=== PATIENT | male | born 1955 | race Caucasian/White ===

== ENCOUNTER 2017-12-28 08:46 | Inpatient (IN) ==
[~2017-12-28 08:46] MED LIST: Famotidine 20 MG/2 ML VIAL IVP ONE; Pregabalin 75 MG CAPSULE PO ONE; Ringers Solution, Lactated 1,000 ML IVC SCH
[2017-12-28] MEDS ORDERED: Albuterol 2.5 MG/3 ML NEBULIZER IH ONE (09:06)
[2017-12-28] MEDS ORDERED: *HR* FentaNYL (PF) 100 MCG/2 ML VIAL ONE (09:30)
[2017-12-28] MEDS ORDERED: Ondansetron 4 MG/2 ML VIAL ONE (09:30)
[2017-12-28] MEDS ORDERED: *HR* Propofol 200 MG/20 ML VIAL IVP ONE ×2 (09:30→12:07)
[2017-12-28] MEDS ORDERED: Dexamethasone 4 MG/ML VIAL ONE (09:30)
[2017-12-28] MEDS ORDERED: *HR* Midazolam HCl 2 MG/2 ML VIAL ONE (09:30)
[2017-12-28] MEDS ORDERED: Lidocaine -MPF 2% 2 ML VIAL ONE (09:30)
[2017-12-28] MEDS ORDERED: ROPIVACAINE HCL/PF 0.5% 30 ML VIAL ONE (09:42)
[2017-12-28] MEDS ORDERED: Dexmedetomidine HCl 400 MCG/100 ML MLS IVC ONE (09:42)
[2017-12-28] MEDS ORDERED: Morphine Sulfate/PF 5mg/10mL Vial ONE (09:42)
--- NOTE | 2017-12-28 09:44 | Anesthesia Evaluation PreOp ---
Date of Encounter: 12/28/17 Time of Encounter: 09:40 - Past History Planned Operation: Left TKA Cardiac History: HTN, Hyperlipidemia Pulmonary History: Smoker, COPD OPERATOR SPECIALIST COMMUNICATIONS History: Denies Any Significant HX Other Medical History: GERD Anesthesia History: No Prior Anesthetic Complications Alcohol Use: occasionally Drug use: none Medications and Allergies Albuterol Sulfate [Albuterol Inhaler] 2 puff IH Q6H PRN 07/07/17 [History] Aspirin [Lo-Dose Aspirin EC] 81 mg PO DAILY 07/07/17 [History] Atenolol [Tenormin] 25 mg PO DAILY 07/07/17 [History] Atorvastatin [Lipitor] 40 mg PO HS 07/07/17 [History] Cholecalciferol (D-3) [Vitamin D] 5,000 unit PO MO 07/07/17 [History] Lisinopril [Zestril] 80 mg PO DAILY 07/07/17 [History] Omeprazole [PriLOSEC] 40 mg PO DAILY 07/07/17 [History] Aspirin Enteric Coated [Aspirin EC] 325 mg PO BID #20 tablet. 12/27/17 [Rx] OxyCODONE Immed Rel [Roxicodone 5 MG] 5 mg PO Q6HR PRN 7 Days #28 tablet [Rx] 3 Allergy/AdvReac Type Severity Reaction Status Date / Time No Known Allergies Allergy Verified 12/23/17 11:38 - Meds/Allergy Pre-op Review Medications Reviewed: Yes Allergies Reviewed: Yes Beta Blockers on Current Med List: Yes (Metoprolol today 0800) Anesthesia Results - Labs Laboratory Tests 12/23/17 12/23/17 12:30 12:30 Hgb 15.8 Hct 46.0 Plt Count 202 Sodium 136 Potassium 5.1 BUN 30 H Creatinine 1.29 - Imaging EKG: report reviewed (SB) Anesthesia Exam O2 Sat Height 1.83 m Height 1.83 m Height 1.83 m Weight 116.12 kg Weight 116.12 kg Weight 116.12 kg O2 Sat by Pulse Oximetry 94 Vital Signs Temp Pulse Resp BP Pulse Ox 98.1 F 68 18 119/78 94 12/28/17 09:33 12/28/17 09:33 12/28/17 09:33 12/28/17 09:33 12/28/17 09:33 Height: 6'0 Weight: 256 lbs NPO (# of Hours): MN Pain Scale: 0 - HEENT Pupil (Motor): Pupils equal, EOMI Mallampati: III Denture Type: Upper: Complete Oral Opening: Less than or equal to 3 - OPERATOR SPECIALIST COMMUNICATIONS LOC: Oriented OPERATOR SPECIALIST COMMUNICATIONS Motor: Normal RUE, Normal LUE, Normal RLE, Normal LLE, Normal Face OPERATOR SPECIALIST COMMUNICATIONS Sensory: Normal: RUE, LUE, RLE, LLE, Face - Cardiac Rhythm: Regular Murmur: None JVD: No Carotid Bruit: No - Pulmonary Breath Sounds: bilateral Clear Respiratory Effort: Symmetrical Anesthesia Assess/Plan ASA Score: 3 (HTN COPD Gerd) Modified [place] Scale for Level of Consciousness: Cooperative, oriented, and tranquil Anesthetic Plan: Regional, MAC Monitoring Plan: Standard Monitors Recovery Plan: PACU (Discussed SAB with Adductor Canal Block, possible GA, agrees to proceed)
[2017-12-28] MEDS ORDERED: *HR* Dextrose 50 % in Water (Syg) 50 ML SYRINGE IVC ONE (09:49)
--- NOTE | 2017-12-28 09:55 | History & Physical Report ---
Date of Encounter: 12/28/17 Time of Encounter: 09:55 24 Hour HP Update - Instructions Instructions: If the History and Physical is less than 30 days old and was completed prior to A.M. admission and or procedure and has NOT been updated on calendar day of procedure please complete this update prior to performing procedure. - Update Patient reports changes in Medical Condition: No Changes in examination, assessment, or condition: No Changes in Medication: No Preop tests/diagnostics Reviewed: Yes Surgery Remains Indicated: Yes Consent for Planned Operative Procedure(s) Verified: Yes - Pre-Operative Checklist Preoperative Checklist Indicated: No Prophylactic Antibiotic Ordered: Yes Is VTE Prophylaxis Indicated?: Yes
[2017-12-28] MEDS ORDERED: Ethanol\\Acetic Acid\\Na Ace\\Ben 1,000 ML IRRIG.SOLN IR ONE (10:42)
--- NOTE | 2017-12-28 10:55 | Anesthesia Procedures ---
Date of Encounter: 12/28/17 Time of Encounter: 09:40 Procedures: Anesthesia - Epidural/Spinal Patient ID/Chart reviewed: Yes Patient examined: Yes Consent Obtained: Yes Supplemental Oxygen: Nasal Cannula (2) Sedation: Versed (mg): 2 Sedation: Fentanyl (mcg): 50 Site Prep: Aseptic Technique Patient position: upright Local Anesthetic: Lidocaine 1% Interspace Used: L4-L5 Loss of Resistance (MARGARETH): No Blood: No CSF: Yes Paresthesia: No Spinal Needle Gauge: 24 Spinal Dose: 10 mg isobaric marcaine, duramorph 300 micrograms Vitals + FHT's: Vital Signs/O2 Sat/Glucose, Most Current Temp Pulse Resp BP Pulse Ox 12/28/17 10:53 58 15 101/68 94 12/28/17 10:50 65 15 99/65 95 12/28/17 10:47 59 16 94/57 94 12/28/17 10:44 60 16 112/51 93 12/28/17 10:39 64 15 104/54 94 12/28/17 10:36 59 16 112/62 92 12/28/17 10:33 61 15 122/91 90 12/28/17 10:19 57 15 125/87 91 12/28/17 09:33 98.1 F 68 18 119/78 94 - Nerve Block Procedure Date: 12/28/17 Time: 10:30 Pre-op Diagnosis: Left Knee Arthropathy Surgical Procedure: TKA Checklist: Correct Patient Identifier Correct side: Left Monitor Applied: EKG, BP, Pulse Oximetry Supplemental Oxygen via Nasal Cannula (L/min): 2 Sedation: Versed (mg): 2 Sedation: Fentanyl (mcg): 50 Indication: Post Op Analgesia Pre-op Neuro Deficits: No Block Type: Other (Adductor Canal Block) Catheter placed: No Depth at skin (cm): 4 Sterile Technique: Yes Ultrasound used: Yes Anatomy identified: Yes Visual spread of Local: Yes Neuro Stimulation: No Nerve Stimulator Range: >0.4 - 0.6 mA Blood on Needle Aspiration: No Smooth Injection of Local: Yes Pain with Injection of Local: No Prep: Chlorhexadine Needle: 21 x 100 mm Stimuplex Local: Ropivacaine (0.5%), Other (Precedex 20micrograms) Volume (cc): 30 Number of Attempts: 1 Complications: None/effective block
[2017-12-28] MEDS ORDERED: *HR* OxyCODONE Immed Rel 5 MG TABLET PO PRN (12:27)
[2017-12-28] MEDS ORDERED: *HR* Promethazine 25 MG/ML VIAL IVP PRN (12:27)
[2017-12-28] MEDS ORDERED: Ondansetron 4 MG/2 ML VIAL IVP ONE (12:27)
[2017-12-28] MEDS ORDERED: Ringers Solution, Lactated 1,000 ML IVC SCH (12:30)
[2017-12-28] MEDS ORDERED: *HR* PHENYLEPHRINE 1,000 MCG/10 ML SYRINGE IVP ONE (12:37)
--- NOTE | 2017-12-28 12:39 | Orthopedic Operative Note ---
Date of procedure: 12/28/17 Pre-op diagnosis: Left knee arthritis Post-op diagnosis: same Procedure: Procedure: Left robotic-assisted Total knee replacement Estimated blood loss: 200 cc Hardware: Metal and polyethylene replacement. [place] Femur: 7 Tibia: 7 TS insert: 9 Patella: 39 Exam Under anesthesia: 2 degree flexion contracture 12 degree varus as calculated by the robot full flexion and no instability Procedural Notes: Grade 4 arthritic changes all 3 compartments. Operative procedure: The patient was brought to the operating room and placed on the operating room table. After general anesthesia was administered the operative knee was examined. Findings were noted in the exam under anesthesia. The operative extremity was prepped and draped in sterile surgical fashion. The patient received IV antibiotics prior to skin incision. A standard midline incision was made centered over the patella. The incision was made through the skin and subcutaneous tissue. A medial parapatellar tendon approach was performed. Care was taken to preserve tissue along the medial aspect of the patella. Cultures were obtained although no fluid was consistent with infection patient has a history of distal tibia fracture with complications. And to protect the patella tendon. The deep MCL was released off the medial tibia. The infra patella fat pad was excised. The patella was everted and cut was made at the level of the insertion of the quadriceps and patella tendon. The patella was sized to 39 the guide was seated and the lug holes are drilled. Knee was brought into flexion. Patient noted to have Steinmann pins were placed in the tibia and the femur for the tibial and femoral arrays respectively. Checkpoints were also placed in the tibia and the femur for calculation purposes. The knee including the femur and the tibial registered. Osteophytes, ACL and PCL were excised at this point. Extension and flexion were assessed with a valgus stress components were adjusted on the computer to balance the knee. Femoral cuts were made first with robotic assistance, these included the anterior cut posterior cuts chamfer cuts. Tibial cut was then performed with robotic assistance as well. Bone fragments were removed, as well as the medial and lateral meniscus. The size 7 femoral guide was seated box cut was made lug holes are drilled. The size 7 tibial tray was seated and prepared with the fin cutter. Trial reduction with the 9 TS Lesvia revealed extension of 0 degree and 7 degree varus full flexion. No varus valgus instability. Trial reduction revealed excellent patella tracking. All trial components were removed all bony surfaces were irrigated. The Tibia was seated followed by the femur, The Lesvia size 9 was seated and secured patella. Patient had similar findings for motion and stability. The knee was closed by the PA. The knee was then irrigated out with 2 L of pulse irrigation. The extensor mechanism was closed with #2 FiberWire suture and #2 PDS suture. The subcutaneous tissue was then irrigated and closed deep with #1 PDS suture superficially with 0 PDS suture and skin was closed with zip tie The patient was then placed in a sterile dressing and a postoperative brace extubated and transferred to recovery room in stable condition. Anesthesia: spinal Surgeon: Cody Ash Was there an intellectual property legal assistant present: No Estimated blood loss (cc): 200 Condition: stable Disposition: PACU
[2017-12-28] MEDS ORDERED: Albuterol 2.5 MG/3 ML NEBULIZER ONE (13:34)
[2017-12-28 13:57] LABS: Hematocrit 41.6 % (37.5-50.1)
[2017-12-28 14:01] LABS: Hemoglobin 14.1 g/dL (12.9-16.9)
[2017-12-28] MEDS ORDERED: *HR* OxyCODONE/APAP 5/325 TABLET PO PRN (14:11)
--- NOTE | 2017-12-28 14:13 | Anesthesia Evaluation Post Op ---
Date of Encounter: 12/28/17 Time of Encounter: 14:10 - Vital Signs Vital Signs: Vital Signs/O2 Sat/Glucose, Most Current Temp Pulse Resp BP Pulse Ox 12/28/17 13:55 50 16 114/65 93 12/28/17 13:45 97.3 F L 54 16 98/75 92 12/28/17 13:35 52 16 112/70 93 12/28/17 13:25 54 16 91/76 93 12/28/17 13:15 97.3 F L 63 16 116/67 95 12/28/17 11:26 56 15 96/61 93 12/28/17 11:21 58 15 93/59 94 12/28/17 11:16 61 15 90/64 93 12/28/17 11:12 58 15 84/52 93 12/28/17 11:06 58 15 84/56 93 12/28/17 11:02 60 15 92/63 92 12/28/17 11:00 60 15 94/69 96 12/28/17 10:56 59 15 95/55 92 12/28/17 10:53 58 15 101/68 94 12/28/17 10:50 65 15 99/65 95 12/28/17 10:47 59 16 94/57 94 12/28/17 10:44 60 16 112/51 93 12/28/17 10:39 64 15 104/54 94 12/28/17 10:36 59 16 112/62 92 12/28/17 10:33 61 15 122/91 90 12/28/17 10:19 57 15 125/87 91 - Lungs Lungs: Clear Ascult./Percussion - Airway Airway: Non-obstructed - Cardiovascular Regular Rate - Mental Status Mental Status: Alert & Oriented, Answers Appropriately - Pain Pain Scale: 0 - Nausea Vomiting Nausea Vomiting: Not Present - Hydration Hydration: Ice chips - Discharge PostOp Status: Transfer Patient to floor
[2017-12-28] MEDS ORDERED: Ondansetron 4 MG/2 ML VIAL IVP PRN (14:54)
[2017-12-28] MEDS ORDERED: traMADol 50 MG TABLET PO PRN (14:54)
[2017-12-28] MEDS ORDERED: DIPHENHYDRAMINE PO PRN (14:54)
[2017-12-28] MEDS ORDERED: ACETAMINOPHEN PO PRN (14:54)
[2017-12-28] MEDS ORDERED: Temazepam 15 MG CAPSULE PO PRN (14:54)
[2017-12-28] MEDS ORDERED: Naloxone 0.4 MG/ML INJ IVP PRN ×2 (14:54→18:24)
[2017-12-28] MEDS ORDERED: (Melatonin/Pyridoxine Hcl (B6) [Melatonin 3 Mg Tablet) PO PRN (14:54)
[2017-12-28] MEDS ORDERED: Sennosides 8.6 MG TABLET PO PRN (14:54)
[2017-12-28] MEDS ORDERED: MOM Conc 10 ML UD.LIQ PO PRN (14:54)
--- NOTE | 2017-12-28 15:48 | Physician Discharge Referral ---
<Scarlett Regan L - Last Filed: 12/28/17 15:46> Home Health/Hosp Referral Info Transfer to: Home Health Attending Provider: Provider in Charge Post Discharge: PCP - Diagnosis (1) Status post total knee replacement, left Priority: Primary Status: Acute (2) Arthritis of knee, left Priority: Primary Status: Acute (3) COPD (chronic obstructive pulmonary disease) Priority: Secondary Status: Chronic (4) HTN (hypertension) Priority: Secondary Status: Chronic (5) Tobacco use Priority: Secondary Status: Chronic (6) History of abdominal aortic aneurysm (AAA) Priority: Secondary Status: Chronic - Respiratory Orders None Smoking Cessation: Smoking cessation has been advised. For more information, call the [place] Tobacco Quit Line at 5-620-MEFC-NOW. - Diet/Nutrition Diet/Nutrition Orders: Regular - Activity Activity Orders: Up ad carlos, Ambulate - Services Needed Following services are medically necessary services: Nursing, Home Health Aide, Physical Therapy, Occupational Therapy Other Treatments: Rehab orders for total knee: Total Knee replacement Precautions x 6 weeks Apply cold therapy wrap 3-6x/day for 20 minutes at a time. Encourage ambulation throughout the day and incentive spirometer 10x/hour. Elevate affected extremity above heart as tolerated. Brace: Wear knee immobilizer at night x 2 weeks. Treatments: Opsite and Zipline dressing, leave intact until first post-operative visit. If dressing becomes >50% saturated, contact office, remove dressing and place appropriate dressing in its place. Do not allow for dressing to get wet. . - Transfer Medications Prescriptions: predniSONE [PredniSONE] See Taper PO DAILY 12 Days #30 tablet Home Medications: Aspirin Enteric Coated [Aspirin EC] 325 mg PO BID #20 tablet. 12/27/17 [Rx] OxyCODONE Immed Rel [Roxicodone 5 MG] 5 mg PO Q6HR PRN 7 Days #28 tablet [Rx] Acetaminophen/Diphenhydramine [Percogesic 325-12.5 mg Tablet] 1 tab PO HS PRN [History] Albuterol Sulfate [Ventolin Hfa] 2 puff IH Q4-6H PRN 12/28/17 [History] Amlodipine Besylate [Amlodipine Besylate] 10 mg PO DAILY 12/28/17 [History] Aspirin [Lo-Dose Aspirin EC] 81 mg PO DAILY 12/28/17 [History] Atenolol [Tenormin] 25 mg PO DAILY 12/28/17 [History] Atorvastatin [Lipitor] 40 mg PO HS 12/28/17 [History] Cholecalciferol (D-3) [Vitamin D] 5,000 unit PO MO 12/28/17 [History] Fluticasone/Salmeterol [Advair 250-50 Diskus] 1 puff IH BID 12/28/17 [History] Ipratropium/Albuterol Neb [Duoneb] 3 ml IH Q6H PRN 12/28/17 [History] Lisinopril [Zestril] 40 mg PO DAILY 12/28/17 [History] Melatonin/Pyridoxine HCl (B6) [Melatonin 3 mg Tablet] 1 tab PO HS PRN 12/28/17 [ History] Omeprazole [PriLOSEC] 40 mg PO Q48H 12/28/17 [History] predniSONE [PredniSONE] See Taper PO DAILY 12 Days #30 tablet 01/02/18 [Rx] Allergies/Adverse Reactions: 3 Allergy/AdvReac Type Severity Reaction Status Date / Time No Known Allergies Allergy Verified 12/28/17 10:11 Certification: Further, I certify that my clinical findings support that this patient is homebound (i.e. absences from home require considerable and taxing effort and are for medical reasons or latter day services or infrequently or short duration when for other reasons) because: Homebound Reason: Post-surgery restriction and or conditions limit ability to leave home Attestation: My signature below is to certify that this patient is under my care and that I, or nurse practitioner, or a physician's kindergarten teacher assistant working with me, has a face-to -face encounter with this patient. <Vesna Chao - Last Filed: 01/02/18 14:35> Home Health/Hosp Referral Info Transfer to: Home Health Provider in Charge Post Discharge: PCP - Diagnosis (1) Status post total knee replacement, left Priority: Primary Status: Acute (2) Arthritis of knee, left Priority: Primary Status: Chronic (3) COPD (chronic obstructive pulmonary disease) Priority: Secondary Status: Chronic (4) HTN (hypertension) Priority: Secondary Status: Chronic (5) Tobacco use Priority: Secondary Status: Chronic (6) History of abdominal aortic aneurysm (AAA) Priority: Secondary Status: Chronic (7) SHANA (acute kidney injury) Priority: Secondary Status: Resolved - Respiratory Orders Smoking Cessation: Smoking cessation has been advised. For more information, call the [place] Tobacco Quit Line at 5-328-SXSV-NOW. - Dressing/Wound Care Site: Left knee - Diet/Nutrition Diet/Nutrition Orders: Regular - Activity Activity Orders: Up ad carlos, Ambulate, Chair, Walker - Services Needed Following services are medically necessary services: Nursing, Home Health Aide, Physical Therapy, Occupational Therapy Certification: Further, I certify that my clinical findings support that this patient is homebound (i.e. absences from home require considerable and taxing effort and are for medical reasons or latter day services or infrequently or short duration when for other reasons) because: Homebound Reason: Post-surgery restriction and or conditions limit ability to leave home Attestation: My signature below is to certify that this patient is under my care and that I, or nurse practitioner, or a physician kindergarten teacher assistant working with me, has a face-to- face encounter with this patient.
[2017-12-28] MEDS: Ipratropium/Albuterol Neb 3 ML IH PRN (17:00)
[2017-12-28 17:52] LABS: BUN/Creatinine Ratio 18 (6-26); Blood Urea Nitrogen 30 mg/dL (8-23); Calcium 9.2 mg/dL (8.6-10.3); Carbon Dioxide 26 mEq/L (23-29); Chloride 106 mEq/L (98-107); Glucose 164 mg/dL (70-105); Osmolality,Calculated 294 (280-300); Potassium 6.4 mEq/L (3.5-5.1); Sodium 137 mEq/L (136-145); eGFR For African Americans 52 (> 60); eGFR For Non-African Americans 43 (> 60)
[2017-12-28] MEDS ORDERED: *HR* Enoxaparin 30 MG/0.3 ML SYRINGE SQ SCH (18:00)
[2017-12-28 18:20] LABS: Troponin I < 0.03 ng/mL (< 0.04)
[2017-12-28 18:22] LABS: ABG Base Excess -1 mEq/L (-2 to 3); ABG HCO3 29 mEq/L (21-27); ABG Oxygen Saturation 83 % (95-98); ABG PCO2 73 mmHg (35-45); ABG PH 7.21 pH Units (7.32-7.45); ABG PO2 60 mmHg (85-104); ABG TCO2 31 mEq/L (20-26)
[2017-12-28] MEDS ORDERED: Insulin LISPRO 300 UNITS/3 ML VIAL SQ ONE (18:51)
[2017-12-28] MEDS ORDERED: *HR* Dextrose 50 % in Water (Syg) 50 ML SYRINGE ONE (18:53)
[2017-12-28] MEDS ORDERED: *HR* Dextrose 50 % in Water (Syg) 50 ML SYRINGE IVP ONE (18:54)
[2017-12-28] MEDS ORDERED: Insulin Human Regular 10 UNIT in 0.9 % Sodium Chloride 10 ML IV ONE (18:54)
[2017-12-28] MEDS ORDERED: SODIUM CHLORIDE 0.9% IVPB ONE (19:17)
[2017-12-28] MEDS ORDERED: CALCIUM GLUCONATE IVPB ONE (19:17)
[2017-12-28 19:38] LABS: VBG HCO3 27 mEq/L (21-27); VBG PCO2 61 mmHg (41-51); VBG PH 7.25 pH Units (7.32-7.42); VBG PO2 191 mmHg (25-50)
[2017-12-28 19:55] LABS: Calcium 9.4 mg/dL (8.6-10.3); Potassium 5.3 mEq/L (3.5-5.1)
[2017-12-28] MEDS: Nicotine 21 MG PATCH.TD24 TD SCH (20:26)
[2017-12-28] MEDS: CeFAZolin Syr 3,000MG/30 ML 3,000 MG/30 ML SYRINGE IVPB SCH (20:26)
[2017-12-28] MEDS: *HR* Enoxaparin 30 MG/0.3 ML SYRINGE SQ SCH (20:26)
--- NOTE | 2017-12-28 21:01 | Internal Medicine Consult Note ---
<Alena Flowers - Last Filed: 12/28/17 21:59> Date of Encounter: 12/28/17 Time of Encounter: 21:00 - Assessment and plan (1) Status post total knee replacement, left Current Visit: Yes Status: Acute Assessment and plan: To be managed per Dr. Ash (2) COPD (chronic obstructive pulmonary disease) Current Visit: Yes Status: Chronic Assessment and plan: Bronchodilators Oxygen prn Bipap Qualifiers: COPD type: unspecified COPD Qualified Code(s): J44.9 - Chronic obstructive pulmonary disease, unspecified (3) HTN (hypertension) Current Visit: Yes Status: Chronic Assessment and plan: Patient bp is well controlled, borderline hypotensive Continue home medications Monitor vital signs Qualifiers: Hypertension type: essential hypertension Qualified Code(s): I10 - Essential (primary) hypertension (4) Tobacco use Current Visit: Yes Status: Chronic Assessment and plan: Smoking cessation education (5) Bradycardia Current Visit: Yes Status: Acute Assessment and plan: Patient likely carrington as a result of recieving anesthesia/propofol. The patient does take atenolol, norvasc and lisinpril. Will add parameters to the atenolol. (6) Hyperkalemia Current Visit: Yes Status: Acute Assessment and plan: Treated with insulin, d50 and calcium gluconate during rapid response. Currently 5.3 - Time Spent With Patient Total time spent is greater than 50% in coordination of care (as documented) at patient's floor/unit and/or counseling patient: Internal Medicine - CN: HPI - Data of Consult Consult date: 12/28/17 Requesting Physician: Cody Ash MD - Consult Narrative Reason for consult: Hypoxia and Bradycardia History of present illness: Mr. Downey is a 62 year old male with history of COPD, HTN, HLD ,OA, depression and tobacco abuse. Received consult request from regarding patient bradycardia and hypoxemia. Please see event note for rapid response information. Patient currently alert and oriented 3, BiPAP on at this time. O2 sat is 94%. The patient will be transferred to . The patient is currently on cardiac monitoring. Past Med Surg Social Fam HX - Past Medical History Medical history: COPD, GERD, hyperlipidemia, hypertension Additional medical history: osteoarthritis,depression,AAA 3.2 cm Psychiatric history: no psych history - Past Surgical History Surgical History: appendectomy, herniorrhaphy, orthopedic, other Additional surgical history: left lower leg multiple surgeries,knee surgery, right hand surgery - Social History Smoking Status: Current every day smoker Smokeless Tobacco Status: No Alcohol use: occasionally Drug use: none - Family History Brother Living Status: Hx Family Cardiac Disorders: Yes Mother Living Status: Hx Family Cancer: Yes - Constitutional Constitutional: lethargy - EENT Ears: no ear discharge Nose, mouth and throat: no facial pain, no mouth lesions, no throat swelling - Cardiovascular Cardiovascular ROS IM: other (Bradycardia), no chest pain - Respiratory Respiratory: dyspnea - Gastrointestinal Gastrointestinal: no abdominal pain, no diarrhea, no nausea - Musculoskeletal Musculoskeletal ROS IM: limited range of motion (left knee) - Integumentary Integumentary IM: other (left knee surgery) - Neurological Neurological ROS: weakness - Endocrine Endocrine IM: no flushing - Hematologic/Lymphatic Hematologic/Lymphatic: no easy bleeding Internal Medicine - CN: Meds Aspirin Enteric Coated [Aspirin EC] 325 mg PO BID #20 tablet. 12/27/17 [Rx] OxyCODONE Immed Rel [Roxicodone 5 MG] 5 mg PO Q6HR PRN 7 Days #28 tablet [Rx] Acetaminophen/Diphenhydramine [Percogesic 325-12.5 mg Tablet] 1 tab PO HS PRN [History] Albuterol Sulfate [Ventolin Hfa] 2 puff IH Q4-6H PRN 12/28/17 [History] Amlodipine Besylate [Amlodipine Besylate] 10 mg PO DAILY 12/28/17 [History] Aspirin [Lo-Dose Aspirin EC] 81 mg PO DAILY 12/28/17 [History] Atenolol [Tenormin] 25 mg PO DAILY 12/28/17 [History] Atorvastatin [Lipitor] 40 mg PO HS 12/28/17 [History] Cholecalciferol (D-3) [Vitamin D] 5,000 unit PO MO 12/28/17 [History] Fluticasone/Salmeterol [Advair 250-50 Diskus] 1 puff IH BID 12/28/17 [History] Ipratropium/Albuterol Neb [Duoneb] 3 ml IH Q6H PRN 12/28/17 [History] Lisinopril [Zestril] 40 mg PO DAILY 12/28/17 [History] Melatonin/Pyridoxine HCl (B6) [Melatonin 3 mg Tablet] 1 tab PO HS PRN 12/28/17 [ History] Omeprazole [PriLOSEC] 40 mg PO Q48H 12/28/17 [History] 3 Allergy/AdvReac Type Severity Reaction Status Date / Time No Known Allergies Allergy Verified 12/28/17 10:11 Internal Medicine - CN: Exam - Constitutional Vitals: Temp Pulse Resp BP Pulse Ox 97.6 F 52 15 91/59 100 12/28/17 16:00 12/28/17 20:23 12/28/17 20:23 12/28/17 20:23 12/28/17 20:23 General appearance IM: Present: mild distress, A&O X 3 - Head Head exam: Present: atraumatic, normal inspection - ENT ENT exam: Present: normal exam - Respiratory Respiratory exam: Present: decreased breath sounds, rhonchi (faint) - Cardiovascular Cardiovascular exam IM: Present: bradycardia - GI/Abdominal GI/Abdominal exam IM: Present: normal bowel sounds. Absent: tenderness - Extremities Exam Extremities exam IM: Present: pedal edema (mild), radial pulses palpable and symmetrical. Absent: full ROM (left knee surgery) - Back Exam Back exam: Present: normal inspection - Neurological Exam Neurological exam: Present: CN II-XII intact, oriented X3, strengths equal and symetr throughout - Expanded Neurological Exam Patient oriented to: Present: person, place, time - Psychiatric Psychiatric exam: Present: normal affect (Appropriate for situation) Internal Medicine - CN: Reslt - Labs CBC & Chem 7: 12/28/17 13:44 12/28/17 19:24 Labs: Short CBC 12/28/17 Range/Units 13:44 Hgb 14.1 D (12.9-16.9) g/dL Hct 41.6 (37.5-50.1) % BMP 12/28/17 12/28/17 17:22 19:24 Sodium 137 137 Potassium 6.4 H 5.3 H Chloride 106 106 Carbon Dioxide 26 24 BUN 30 H 32 H Creatinine 1.63 H 1.91 H Glucose 164 H 258 H Calcium 9.2 9.4 Cardiac Enzymes 12/28/17 Range/Units 17:22 Troponin I < 0.03 (< 0.04) ng/mL - ABG Interpretation ABG results: ABG ABG pH 7.21 pH Units (7.32-7.45) L 12/28/17 18:14 ABG pCO2 73 mmHg (35-45) H* 12/28/17 18:14 ABG pO2 60 mmHg (85-104) L 12/28/17 18:14 ABG O2 Saturation 83 % (95-98) L 12/28/17 18:14 - Impressions Impressions Knee X-Ray 12/28/17 00:01 IMPRESSION: Status post left knee arthroplasty without acute postoperative complication. D/ / 12/28/2017 13:41:06 Mick Matos MD / [facility] Interpreting Provider: Mick Matos MD Chest X-Ray 12/28/17 17:56 IMPRESSION: 1. Perihilar vascular congestion with basilar atelectasis. D/ / 12/28/2017 18:41:24 [facility] Inter[facility] Provider: Apoorva Castano MD Consult Discharge Plan - Plan Referrals: Vesna Chao, PAC [Physician Supervisor Metalizing] - 01/13/18 1:15 pm Cody Ash MD [Partnered Physician] - 01/25/18 4:50 pm Scarlett Regan, PAC [Physician Supervisor Metalizing] - 01/05/18 10:30 am Faviola Bañuelos, GRANULATOR [Primary Care Provider] - <Lory Moser - Last Filed: 12/29/17 07:30> Date of Encounter: 12/28/17 - Time Spent With Patient Total time spent is greater than 50% in coordination of care (as documented) at patient's floor/unit and/or counseling patient: Internal Medicine - CN: HPI - Data of Consult Requesting Physician: Cody Ash MD - Consult Narrative History of present illness: Mr. Downey is a 62 year old male Internal Medicine - CN: Exam - Constitutional Vitals: Temp Pulse Resp BP Pulse Ox 96.8 F L 76 12 118/76 100 07/12/18 03:43 12/29/17 03:43 12/29/17 04:04 12/29/17 03:43 12/29/17 04:04 Internal Medicine - CN: Reslt - Labs CBC & Chem 7: 12/29/17 03:09 12/29/17 03:09 Labs: Short CBC 12/28/17 12/29/17 Range/Units 13:44 03:09 Hgb 14.1 D 14.0 (12.9-16.9) g/dL Hct 41.6 43.1 (37.5-50.1) % BMP 12/28/17 12/28/17 12/29/17 17:22 19:24 03:09 Sodium 137 137 138 Potassium 6.4 H 5.3 H 6.4 H Chloride 106 106 107 Carbon Dioxide 26 24 26 BUN 30 H 32 H 39 H Creatinine 1.63 H 1.91 H 2.60 H Glucose 164 H 258 H 146 H Calcium 9.2 9.4 9.3 Cardiac Enzymes 12/28/17 Range/Units 17:22 Troponin I < 0.03 (< 0.04) ng/mL - ABG Interpretation ABG results: ABG ABG pH 7.21 pH Units (7.32-7.45) L 12/28/17 18:14 ABG pCO2 73 mmHg (35-45) H* 12/28/17 18:14 ABG pO2 60 mmHg (85-104) L 12/28/17 18:14 ABG O2 Saturation 83 % (95-98) L 12/28/17 18:14 - Impressions Impressions Knee X-Ray 12/28/17 00:01 IMPRESSION: Status post left knee arthroplasty without acute postoperative complication. D/ / 12/28/2017 13:41:06 [facility] Mat[facility] MD / [facility] Interpreting Provider: Mick Matos MD Chest X-Ray 12/28/17 17:56 IMPRESSION: 1. Perihilar vascular congestion with basilar atelectasis. D/ / 12/28/2017 18:41:24 Apoorva Castano MD / [facility] Interpreting Provider: Apoorva Castano MD - Attending Attestation I personally and independently interviewed and examined the patient with MACHINIST, and I reviewed the patient's medical record with her. I am in agreement with the assessment and proposed treatment plan. I discussed my findings and recommendation with the patient and answer all questions. The patient's medical records were edited to accurately reflect this encounter.
--- NOTE | 2017-12-28 21:15 | Event Note ---
Date of Encounter: 12/28/17 Time of Encounter: 18:[address] Moser talking with nursing regarding patient and being a new consult to hospitalist. A rapid response was called on the patient, on arrival to the patient room, care was being provided per Dr. Moser. The patient was apparently having periods of lethargy and hypoxia since returning to his room from surgery. The patient has a COPD history. The patient was on bipap when I entered the room. The patient k was 6.4 and was treated during the rapid. The patient was transferred from room [facility] to [facility], during this time. He was awake and alert by the end of he rapid. I completed my assessment at that time. He denied needs.
[2017-12-29] MEDS: Ringers Solution, Lactated 1,000 ML IVC SCH ×2 (01:00→08:50)
[2017-12-29] MEDS: CeFAZolin Syr 3,000MG/30 ML 3,000 MG/30 ML SYRINGE IVPB SCH (03:37)
[2017-12-29] MEDS: *HR* Enoxaparin 30 MG/0.3 ML SYRINGE SQ SCH (03:38)
[2017-12-29 03:47] LABS: Hematocrit 43.1 % (37.5-50.1)
[2017-12-29] MEDS: Ipratropium/Albuterol Neb 3 ML IH PRN (04:03)
[2017-12-29 04:06] LABS: Calcium 9.3 mg/dL (8.6-10.3); Potassium 6.4 mEq/L (3.5-5.1)
--- NOTE | 2017-12-29 08:08 | Orthopedics Progress Note ---
Date of Encounter: 12/29/17 Time of Encounter: 08:07 Subjective Interval history: Patient was seen this morning transferred to cardiac care unit overnight for respiratory distress and hyperkalemia patient awake and alert doing well no complaints. Afebrile vital signs stable. Operative extremity: Neurovascularly intact Dressing clean dry and intact Calves nontender Assessment and plan: Continue with postoperative care as per hospitalist recommended a nephrology consult Objective Vital signs: Vital Signs Temp Pulse Resp BP Pulse Ox 12/29/17 07:29 97.6 F 60 17 102/60 93 12/29/17 04:04 12 100 12/29/17 03:43 96.8 F L 76 18 118/76 96 12/28/17 23:35 82 15 96/63 100 12/28/17 20:23 52 15 91/59 100 12/28/17 18:09 59 16 103/59 91 12/28/17 17:00 12 90 12/28/17 16:30 51 16 111/65 95 12/28/17 16:00 97.6 F 59 12 103/60 91 12/28/17 15:30 46 14 106/64 12/28/17 15:00 50 16 103/64 94 12/28/17 14:30 53 20 94/59 92 12/28/17 14:15 97.2 F L 51 16 106/71 94 12/28/17 14:05 52 16 106/64 94 12/28/17 13:55 50 16 114/65 93 12/28/17 13:45 97.3 F L 54 16 98/75 92 12/28/17 13:35 52 16 112/70 93 12/28/17 13:25 54 16 91/76 93 12/28/17 13:15 97.3 F L 63 16 116/67 95 12/28/17 11:26 56 15 96/61 93 12/28/17 11:21 58 15 93/59 94 12/28/17 11:16 61 15 90/64 93 12/28/17 11:12 58 15 84/52 93 12/28/17 11:06 58 15 84/56 93 12/28/17 11:02 60 15 92/63 92 12/28/17 11:00 60 15 94/69 96 12/28/17 10:56 59 15 95/55 92 12/28/17 10:53 58 15 101/68 94 12/28/17 10:50 65 15 99/65 95 12/28/17 10:47 59 16 94/57 94 12/28/17 10:44 60 16 112/51 93 12/28/17 10:39 64 15 104/54 94 12/28/17 10:36 59 16 112/62 92 12/28/17 10:33 61 15 122/91 90 12/28/17 10:19 57 15 125/87 91 12/28/17 09:33 98.1 F 68 18 119/78 94 Intake and Output 12/28/17 12/29/17 12/29/17 23:59 07:59 15:59 Output Total 900 / 900 Balance -900 / -900 Output: Emesis 600 / 600 Straight Cath 300 / 300 Other: Weight 118.2 kg 118 kg Blood Glucose* 157 Patient Weight 12/29/17 23:59 Weight 118 kg - Labs CBC & BMP: 12/29/17 03:09 12/29/17 03:09 Labs: Abnormal lab results ABG pH 7.21 pH Units (7.32-7.45) L 12/28/17 18:14 ABG pCO2 73 mmHg (35-45) H* 12/28/17 18:14 ABG pO2 60 mmHg (85-104) L 12/28/17 18:14 ABG HCO3 29 mEq/L (21-27) H 12/28/17 18:14 ABG Total CO2 31 mEq/L (20-26) H 12/28/17 18:14 ABG O2 Saturation 83 % (95-98) L 12/28/17 18:14 VBG pH 7.25 pH Units (7.32-7.42) L 12/28/17 19:35 VBG pCO2 61 mmHg (41-51) H 12/28/17 19:35 VBG pO2 191 mmHg (25-50) H 12/28/17 19:35 Potassium 6.4 mEq/L (3.5-5.1) H 12/29/17 03:09 BUN 39 mg/dL (8-23) H 12/29/17 03:09 Creatinine 2.60 mg/dL (0.70-1.30) H 12/29/17 03:09 Est GFR ( Amer) 30 (> 60) L 12/29/17 03:09 Est GFR (Non-Af Amer) 25 (> 60) L 12/29/17 03:09 Glucose 146 mg/dL (70-105) H 12/29/17 03:09 POC Glucose 157 mg/dL (70-99) H 12/28/17 20:29 - VTE Documentation of Mechanical Device: Venous foot pump, device Consult Discharge Plan - Plan Referrals: Vesna Choa, PAC [Physician Rn Family] - 01/13/18 1:15 pm Cody Ash MD [Partnered Physician] - 01/25/18 4:50 pm Scarlett Regan, PAC [Physician Rn Family] - 01/05/18 10:30 am Faviola Bañuelos, CHAIR SPRINGER [Primary Care Provider] -
[2017-12-29] MEDS: Budesonide/Formoterol 80/4.5 MDI IH SCH ×2 (08:50→15:13)
[2017-12-29] MEDS ORDERED: Lisinopril 20 MG TABLET PO SCH (09:00)
[2017-12-29] MEDS: Aspirin Enteric Coated 81 MG Tablet PO SCH (09:01)
[2017-12-29] MEDS: Cholecalciferol (D-3) 1,000 UNIT TABLET PO SCH (09:01)
[2017-12-29] MEDS: amLODIPine 5 MG TABLET PO SCH (09:01)
[2017-12-29] MEDS: Nicotine 21 MG PATCH.TD24 TD SCH (09:02)
--- NOTE | 2017-12-29 09:59 | Nephrology Consult Note ---
Date of Encounter: 12/29/17 Time of Encounter: 10:00 Assessment and Plan (1) Hyperkalemia Current Visit: Yes Status: Acute s/p L total knee replacement regional block + MAC anesthesia, no succinylcholine use Has received 12/28 calcium gluconate 500mg; 2 amps D50; 10U insulin; beta- agonist (on duonebs) On telemetry P: Will hold gabriela-i in setting of hyperK to reduce K retention Will give Kayexalate today to facilitate GI excretion Will switch from LR to NS Cont telemetry (2) SHANA (acute kidney injury) Current Visit: Yes Status: Acute 100s systolic; clinically hypovolemic Will continue fluid resus; switching from LR to NS in setting of hyperkalemia; hyperkalemia plan as above Retro US for post-renal rule-out as well (3) Status post total knee replacement, left Current Visit: Yes Status: Acute History of Present Illness - Reason for Consult Consult date: 12/29/17 hyperkalemia Requesting physician: Cody Ash - Chief Complaint Hyperkalemia; s/p L total knee replacement MAC/regional anesthesia - History of Present Illness Mr. Downey is a 62 year old male with past medical history of COPD, HTN, HLD, status-post L total knee replacement 12/28, hospitalist consult placed in setting of hypoxemia, which responded to bipap; nephrology was also consulted in setting of hyperkalemia. Patient's K+ 6.4->5.3->6.4 s/p intracellular shifting measures. Today on evaluation he denies dyspnea, chest discomfort, dysuria, saturating well on nasal cannula (being O2 titrated+telemetry). Past Med Surg Social Fam HX - Past Medical History Medical history: COPD, GERD, hyperlipidemia, hypertension Additional medical history: osteoarthritis,depression,AAA 3.2 cm Psychiatric history: no psych history - Past Surgical History Surgical History: appendectomy, herniorrhaphy, orthopedic, other Additional surgical history: left lower leg multiple surgeries,knee surgery, right hand surgery - Social History Smoking Status: Current every day smoker Smokeless Tobacco Status: No Alcohol use: occasionally Drug use: none - Family History Brother Living Status: Hx Family Cardiac Disorders: Yes Mother Living Status: Hx Family Cancer: Yes Medications and Allergies Aspirin Enteric Coated [Aspirin EC] 325 mg PO BID #20 tablet.dr 12/27/17 [Rx] OxyCODONE Immed Rel [Roxicodone 5 MG] 5 mg PO Q6HR PRN 7 Days #28 tablet [Rx] Acetaminophen/Diphenhydramine [Percogesic 325-12.5 mg Tablet] 1 tab PO HS PRN [History] Albuterol Sulfate [Ventolin Hfa] 2 puff IH Q4-6H PRN 12/28/17 [History] Amlodipine Besylate [Amlodipine Besylate] 10 mg PO DAILY 12/28/17 [History] Aspirin [Lo-Dose Aspirin EC] 81 mg PO DAILY 12/28/17 [History] Atenolol [Tenormin] 25 mg PO DAILY 12/28/17 [History] Atorvastatin [Lipitor] 40 mg PO HS 12/28/17 [History] Cholecalciferol (D-3) [Vitamin D] 5,000 unit PO MO 12/28/17 [History] Fluticasone/Salmeterol [Advair 250-50 Diskus] 1 puff IH BID 12/28/17 [History] Ipratropium/Albuterol Neb [Duoneb] 3 ml IH Q6H PRN 12/28/17 [History] Lisinopril [Zestril] 40 mg PO DAILY 12/28/17 [History] Melatonin/Pyridoxine HCl (B6) [Melatonin 3 mg Tablet] 1 tab PO HS PRN 12/28/17 [ History] Omeprazole [PriLOSEC] 40 mg PO Q48H 12/28/17 [History] 3 Allergy/AdvReac Type Severity Reaction Status Date / Time No Known Allergies Allergy Verified 12/28/17 10:11 Review of Systems All Systems: reviewed and no additional remarkable complaints except as stated Exam - Vital Signs Vital signs: Initial Vital Signs Temp Pulse Resp BP Pulse Ox 98.1 F 68 18 119/78 94 12/28/17 09:33 12/28/17 09:33 12/28/17 09:33 12/28/17 09:33 12/28/17 09:33 Vital Signs - Last 8 Hours Temp Pulse Resp BP Pulse Ox 12/29/17 07:29 97.6 F 60 17 102/60 93 12/29/17 04:04 12 100 12/29/17 03:43 96.8 F L 76 18 118/76 96 Intake and Output 12/28/17 12/29/17 12/29/17 23:59 07:59 15:59 Output Total 900 / 900 Balance -900 / -900 Output: Emesis 600 / 600 Straight Cath 300 / 300 Other: Weight 118.2 kg 118 kg Blood Glucose* 157 Patient Weight 12/29/17 23:59 Weight 118 kg - General Appearance General appearance: well-developed, well-nourished, appears started age Neck: supple Additional Comments: diminished breath sounds due to body habitus, otherwise clear Cardiology: no murmurs, no rub, no gallops, no edema, regular rate, regular rhythm, normal S1, normal S2 Integumentary: no rash, warm and dry Neurologic: no focal deficit, alert and oriented x3 Musculoskeletal: no deformities, no erythema, no cyanosis, no clubbing Psychiatric: mood/affect appropriate, cooperative Results - Lab Results 12/29/17 03:09 12/29/17 03:09 Most recent lab results ABG pH 7.21 pH Units (7.32-7.45) L 12/28/17 18:14 ABG pCO2 73 mmHg (35-45) H* 12/28/17 18:14 ABG pO2 60 mmHg (85-104) L 12/28/17 18:14 ABG HCO3 29 mEq/L (21-27) H 12/28/17 18:14 ABG O2 Saturation 83 % (95-98) L 12/28/17 18:14 Calcium 9.3 mg/dL (8.6-10.3) 12/29/17 03:09 Consult Discharge Plan - Plan Referrals: Vesna Chao, PAC [Physician Supervisor [employer]] - 01/13/18 1:15 pm Cody Ash MD [Partnered Physician] - 01/25/18 4:50 pm Scarlett Regan, PAC [Physician Supervisor [employer]ation] - 01/05/18 10:30 am Faviola Bañuelos, ROTOPRINTER [Primary Care Provider] -
[2017-12-29] MEDS ORDERED: Melatonin 3 MG TABLET PO PRN (11:15)
--- NOTE | 2017-12-29 11:41 | Internal Med Progress Note ---
Date of Encounter: 12/29/17 Time of Encounter: 11:41 - Assessment and plan (1) Status post total knee replacement, left Current Visit: Yes Status: Acute Assessment and plan: the patient is date is post total knee replacement, surgery is following. (2) SHANA (acute kidney injury) Current Visit: Yes Status: Acute Assessment and plan: most likely secondary to pre- renal etiology, due to volume depletion, nephrology was consulted for further evaluation and managemen (3) Hyperkalemia Current Visit: Yes Status: Acute Assessment and plan: Potassium is trending up again, no significant ECG changes, nephrology was consulted and medical treatment was started with Kayexalate promote GI excretion. (4) COPD (chronic obstructive pulmonary disease) Current Visit: Yes Status: Chronic Assessment and plan: We will continue oxygen supplementation via BiPAP. we will continue respiratory treatments. Qualifiers: COPD type: unspecified COPD Qualified Code(s): J44.9 - Chronic obstructive pulmonary disease, unspecified (5) HTN (hypertension) Current Visit: Yes Status: Chronic Assessment and plan: we'll continue home medication and and adjust regimen accordingly Qualifiers: Hypertension type: essential hypertension Qualified Code(s): I10 - Essential (primary) hypertension (6) DVT prophylaxis Current Visit: Yes Status: Acute Assessment and plan: we'll continue heparin 5000 BID - Time Spent With Patient Total time spent is greater than 50% in coordination of care (as documented) at patient's floor/unit and/or counseling patient: - Subjective Interval history: The patient is comfortable, he has no specific complaints - Constitutional Vitals: Temp Pulse Resp BP Pulse Ox 98.0 F 60 18 106/72 98 12/29/17 11:18 12/29/17 11:18 12/29/17 11:18 12/29/17 11:18 12/29/17 11:18 General appearance: Present: mild distress, A&O X 3 - Head Head exam: Present: atraumatic, normocephalic - Respiratory Respiratory exam: Present: rhonchi. Absent: accessory muscle use, rales, wheezes - Cardiovascular Cardiovascular exam: Present: RRR, +S1, +S2. Absent: diastolic murmur, gallop, rubs, systolic murmur - GI/Abdominal GI/Abdominal exam: Present: normal bowel sounds, soft, no peritoneal signs. Absent: distended, tenderness - Extremities Exam Extremities exam: Present: warm, radial pulses palpable and symmetrical. Absent : calf tenderness, cyanotic, pedal edema Internal Medicine: Result - Labs CBC & Chem 7: 12/30/17 03:17 12/30/17 03:17 Labs: Short CBC 12/28/17 12/29/17 Range/Units 13:44 03:09 Hgb 14.1 D 14.0 (12.9-16.9) g/dL Hct 41.6 43.1 (37.5-50.1) % BMP 12/28/17 12/28/17 12/29/17 17:22 19:24 03:09 Sodium 137 137 138 Potassium 6.4 H 5.3 H 6.4 H Chloride 106 106 107 Carbon Dioxide 26 24 26 BUN 30 H 32 H 39 H Creatinine 1.63 H 1.91 H 2.60 H Glucose 164 H 258 H 146 H Calcium 9.2 9.4 9.3 Cardiac Enzymes 12/28/17 Range/Units 17:22 Troponin I < 0.03 (< 0.04) ng/mL - ABG Interpretation ABG results: ABG ABG pH 7.21 pH Units (7.32-7.45) L 12/28/17 18:14 ABG pCO2 73 mmHg (35-45) H* 12/28/17 18:14 ABG pO2 60 mmHg (85-104) L 12/28/17 18:14 ABG O2 Saturation 83 % (95-98) L 12/28/17 18:14 - Impressions Impressions Knee X-Ray 12/28/17 00:01 IMPRESSION: Status post left knee arthroplasty without acute postoperative complication. D/ / 12/28/2017 13:41:06 Mick Matos MD / [facility] Interpreting Provider: Mick Matos MD Chest X-Ray 12/28/17 17:56 IMPRESSION: 1. Perihilar vascular congestion with basilar atelectasis. D/ / 12/28/2017 18:41:24 Apoorva Castano MD / [facility] Interpreting Provider: Apoorva Castano MD - VTE Documentation of Mechanical Device: Venous foot pump, device Consult Discharge Plan - Plan Referrals: Vesna Chao, PAC [Physician Instructor Pilot] - 01/13/18 1:15 pm Cody Ash MD [Partnered Physician] - 01/25/18 4:50 pm Scarlett Regan, PAC [Physician Instructor Pilot] - 01/05/18 10:30 am Faviola Bañuelos, SOFTWARE RECRUITER [Primary Care Provider] -
[2017-12-29] MEDS: 0.9 % Sodium Chloride 1,000 ML IVC SCH (12:25)
[2017-12-29] MEDS: *HR* OxyCODONE Immed Rel 5 MG TABLET PO PRN ×2 (12:27→20:12)
--- NOTE | 2017-12-29 16:29 | Event Note ---
Date of Encounter: 12/29/17 Time of Encounter: 11:30 PCR - POD#1 - Left TKR 12/28/17 Patient seen at bedside, without complaints. Bipap in place. A&O x 3 12/28 - Rapid Response called, respiratory distress, transferred to - hospitalist consulted 12/29 - Renal consulted - acute kidney concerns Afebrile, vital signs stable. Labs reviewed. Monitoring with hospitalist and renal on board Pain control: adequate Participating in PT. CPM in room. All questions and concerns addressed. Encouraged ambulation and proper hydration. Patient educated on post-operative restrictions and post-operative care. Assessment and plan: Continue with postoperative care Follow Hospitalist recommendations Follow Renal Recommendation. Discharge plan: pending continuity placed.
[2017-12-29] MEDS: *HR* OxyCODONE/APAP 5/325 TABLET PO PRN (16:32)
[2017-12-29 17:17] LABS: Albumin 4.1 g/dL (3.5-5.7); Calcium 9.4 mg/dL (8.6-10.3); Phosphorous 5.5 mg/dL (2.7-4.5); Potassium 5.2 mEq/L (3.5-5.1)
[2017-12-29] MEDS ORDERED: *HR* Enoxaparin 30 MG/0.3 ML SYRINGE SQ SCH (18:00)
[2017-12-30] MEDS: *HR* OxyCODONE Immed Rel 5 MG TABLET PO PRN ×3 (02:10→22:07)
[2017-12-30 03:40] LABS: Hematocrit 35.1 % (37.5-50.1); Hemoglobin 11.5 g/dL (12.9-16.9)
[2017-12-30 03:53] LABS: Calcium 8.8 mg/dL (8.6-10.3); Potassium 4.4 mEq/L (3.5-5.1)
[2017-12-30] MEDS: 0.9 % Sodium Chloride 1,000 ML IVC SCH ×2 (08:23→11:50)
[2017-12-30] MEDS: Budesonide/Formoterol 80/4.5 MDI IH SCH ×2 (08:23→15:13)
[2017-12-30] MEDS: amLODIPine 5 MG TABLET PO SCH (09:04)
[2017-12-30] MEDS: Aspirin Enteric Coated 81 MG Tablet PO SCH (09:04)
[2017-12-30] MEDS: Cholecalciferol (D-3) 1,000 UNIT TABLET PO SCH (09:04)
[2017-12-30] MEDS: Nicotine 21 MG PATCH.TD24 TD SCH (09:05)
[2017-12-30] MEDS: *HR* OxyCODONE/APAP 5/325 TABLET PO PRN ×3 (09:06→18:19)
--- NOTE | 2017-12-30 09:50 | Internal Med Progress Note ---
Date of Encounter: 12/30/17 Time of Encounter: 09:48 - Assessment and plan (1) Status post total knee replacement, left Current Visit: Yes Status: Acute Assessment and plan: Management per primary. (2) COPD (chronic obstructive pulmonary disease) Current Visit: Yes Status: Chronic Assessment and plan: Acute respiratory failure s/p knee surgery. Still requiring 4L NC; wean to room air as tolerated. RT consulted. May be in acute exacerbation of COPD. Start prednisone 40 mg PO QD. Schedule duonebs Q6H. Add claritin, mucinex, mucomyst inhaled, and chest PT for cough. Will try without BiPAP this evening. Qualifiers: COPD type: unspecified COPD Qualified Code(s): J44.9 - Chronic obstructive pulmonary disease, unspecified (3) HTN (hypertension) Current Visit: Yes Status: Chronic Assessment and plan: Continue home medications. Qualifiers: Hypertension type: essential hypertension Qualified Code(s): I10 - Essential (primary) hypertension (4) Hyperkalemia Current Visit: Yes Status: Resolved Assessment and plan: Resolved. Nephrology consulted; appreciate input. Recheck BMP in AM. (5) SHANA (acute kidney injury) Current Visit: Yes Status: Acute Assessment and plan: Improved. Nephrology consulted; appreciate input. Continue gentle IVF for now. Encourage PO hydration. Recheck BMP in AM. (6) DVT prophylaxis Current Visit: Yes Status: Acute Assessment and plan: Continue SQ lovenox. - Time Spent With Patient Total time spent is greater than 50% in coordination of care (as documented) at patient's floor/unit and/or counseling patient: less than 15 minutes - Subjective Interval history: Patient had no acute events overnight. He was on BiPAP again last night. He is on 4L NC this AM. He has no supplemental oxygen at home. He states that he still feels "a little short of breath." He has thick cough that he is having trouble bringing up. He denies fever, chills, chest pain, nausea, vomiting, or abdominal pain. He has no other complaints at this time except left knee pain. - Constitutional Vitals: Temp Pulse Resp BP Pulse Ox 98.2 F 83 20 168/100 94 12/30/17 06:56 12/30/17 06:56 12/30/17 06:56 12/30/17 06:56 12/30/17 06:56 General appearance: Present: cooperative, A&O X 3, pleasant, no acute distress, obese, answers questions appropriately - Respiratory Respiratory exam: Absent: accessory muscle use, rales, rhonchi Additional comments: Mildly labored WOB, coarse breath sounds bilaterally with intermittent expiratory wheeze - Cardiovascular Cardiovascular exam: Present: RRR, +S1, +S2. Absent: diastolic murmur, gallop, rubs, systolic murmur Additional comments: No BLE edema - GI/Abdominal GI/Abdominal exam: Present: normal bowel sounds, soft. Absent: distended, hepatomegaly, mass, splenomegaly, tenderness - Psychiatric Psychiatric exam: Present: normal affect, normal mood. Absent: agitated, anxious, depressed - Skin Skin exam: Present: dry, warm. Absent: cyanosis, erythema, rash Internal Medicine: Result - Labs CBC & Chem 7: 12/30/17 03:17 12/30/17 03:17 Labs: Short CBC 12/30/17 Range/Units 03:17 Hgb 11.5 L D (12.9-16.9) g/dL Hct 35.1 L (37.5-50.1) % BMP 12/29/17 12/30/17 16:41 03:17 Sodium 138 136 Potassium 5.2 H 4.4 Chloride 104 103 Carbon Dioxide 27 25 BUN 46 H 40 H Creatinine 3.17 H 1.82 H Glucose 114 H 117 H Calcium 9.4 8.8 Liver Function 12/29/17 Range/Units 16:41 Albumin 4.1 (3.5-5.7) g/dL - ABG Interpretation ABG results: ABG ABG pH 7.21 pH Units (7.32-7.45) L 12/28/17 18:14 ABG pCO2 73 mmHg (35-45) H* 12/28/17 18:14 ABG pO2 60 mmHg (85-104) L 12/28/17 18:14 ABG O2 Saturation 83 % (95-98) L 12/28/17 18:14 - Impressions Impressions Chest X-Ray 12/28/17 17:56 IMPRESSION: 1. Perihilar vascular congestion with basilar atelectasis. D/ / 12/28/2017 18:41:24 Apoorva Castano MD / lissett Interpreting Provider: Apoorva Castano MD Retroperitoneum Ultrasound 12/29/17 17:06 IMPRESSION: No acute abnormality. No hydronephrosis. D/ / Jani Walker MD / Jani Walker MD Interpreting Provider: Jani Walker MD Consult Discharge Plan - Plan Referrals: Vesna Chao, PAC [Physician Oncology Admin] - 01/13/18 1:15 pm Cody Ash MD [Partnered Physician] - 01/25/18 4:50 pm Scarlett Regan, PAC [Physician Oncology Admin] - 01/05/18 10:30 am Faviola Bañuelos, SENIOR PARALEGAL [Primary Care Provider] -
--- NOTE | 2017-12-30 11:29 | Event Note ---
Date of Encounter: 12/30/17 Time of Encounter: 11:26 PCR - POD#2 - Left TKR 12/28/17 Patient seen at bedside, without complaints. Bipap last night, currently on 4LNC. A&O x 3 12/28 - Rapid Response called, respiratory distress, transferred to - hospitalist consulted 12/29 - Renal consulted - acute kidney concerns 12/30 - Renal function improving; continues on 4LNC - stable for transfer back to [facility] Possible Acute COPD exacerbation Afebrile, vital signs stable. Labs reviewed. Monitoring with hospitalist and renal on board Pain control: adequate Participating in PT. CPM in room. All questions and concerns addressed. Encouraged ambulation and proper hydration. Patient educated on post-operative restrictions and post-operative care. Assessment and plan: Continue with postoperative care Follow Hospitalist recommendations Follow Renal Recommendation. Continue PT/OT Discharge plan: pending HH continuity placed. ECF continuity placed, recommending ECF - likely will need supplemental 02 at discharge Anticipate staying until Tuesday*
[2017-12-30] MEDS ORDERED: Ipratropium/Albuterol Neb 3 ML ONE (11:41)
[2017-12-30] MEDS: Ipratropium/Albuterol Neb 3 ML IH SCH ×3 (11:42→23:15)
[2017-12-30] MEDS: Acetylcysteine 10% 2 ML INHSOL IH SCH ×3 (11:42→23:18)
[2017-12-30] MEDS: Loratadine 10 MG TABLET PO SCH (11:50)
[2017-12-30] MEDS: predniSONE 20 MG TABLET PO SCH (11:50)
[2017-12-30] MEDS ORDERED: Melatonin 3 MG TABLET PO PRN (14:00)
[2017-12-30] MEDS ORDERED: Nicotine 21 MG PATCH.TD24 TD PRN (14:00)
--- NOTE | 2017-12-30 16:18 | Nephrology Progress Note ---
Date of Encounter: 12/30/17 Time of Encounter: 11:00 - Assessment and Plan (1) Hyperkalemia Current Visit: Yes Status: Resolved Resolved, will cont to hold gabriela-i for now; can resume at home (2) SHANA (acute kidney injury) Current Visit: Yes Status: Acute Down-trending, will finish current bag of IV fluids and discontinue thereafter; encouraged PO hydration Will monitoring for continued improvement while on PO hydration (3) Status post total knee replacement, left Current Visit: Yes Status: Acute Management per primary team Subjective Principal diagnosis: S/p L total knee replacement; Hyperkalemia; SHANA Interval history: Patient seen and evaluated at bedside, present; patient states he is slightly sluggish after pain meds but pain is in good control, not short of breath, no nausea/vomiting. Had a BM yesterday. No acute concerns or events overnight. Objective - Vital Signs Vital signs: Vital Signs Temp Pulse Resp BP Pulse Ox 12/30/17 15:57 17 94 12/30/17 11:16 98.0 F 86 17 132/88 91 12/30/17 06:56 98.2 F 83 20 168/100 94 12/30/17 06:50 86 18 129/88 97 12/30/17 04:04 97.6 F 80 18 138/84 98 12/30/17 02:50 14 126/83 100 12/30/17 00:04 97.6 F 78 19 125/83 97 12/29/17 19:14 97.5 F L 79 20 125/72 96 Intake and Output 12/30/17 12/30/17 12/30/17 07:59 15:59 23:59 Intake Total 1000 / 1000 120 / 120 Output Total 850 / 850 Balance 150 / 150 120 / 120 Intake: IV Fluids 1000 / 1000 0.9 % Sodium Chloride 1,000 ML 1000 / 1000 @ 75 mls/hr IVC .[id number] [facility] Rx #:[id number] Oral 120 / 120 Output: Urine 200 / 200 Straight Cath 650 / 650 Other: Meal Lunch Percent of Meal Consumed 50% Weight 119.5 kg Patient Weight 12/30/17 23:59 Weight 119.5 kg - General Appearance General appearance: Present: well-developed, well-nourished, appears started age EENT: Present: mucous membranes moist Neck: Present: no JVD, supple Respiratory: Absent: rales, course breath sounds, rhonchi Cardiology: Present: no murmurs, no rub, no gallops, no edema, regular rate, regular rhythm, normal S1, normal S2 Gastrointestinal: Present: normoactive bowel sounds, no tenderness Integumentary: Present: no rash, warm and dry Neurologic: Present: no focal deficit, alert and oriented x3 Musculoskeletal: Present: no deformities, no erythema, no cyanosis, no clubbing Psychiatric: Present: mood/affect appropriate, cooperative - Lab 12/30/17 03:17 12/30/17 03:17 Most recent lab results ABG pH 7.21 pH Units (7.32-7.45) L 12/28/17 18:14 ABG pCO2 73 mmHg (35-45) H* 12/28/17 18:14 ABG pO2 60 mmHg (85-104) L 12/28/17 18:14 ABG HCO3 29 mEq/L (21-27) H 12/28/17 18:14 ABG O2 Saturation 83 % (95-98) L 12/28/17 18:14 Calcium 8.8 mg/dL (8.6-10.3) 12/30/17 03:17 Phosphorus 5.5 mg/dL (2.7-4.5) H 12/29/17 16:41 - VTE Documentation of Mechanical Device: Venous foot pump, device Consult Discharge Plan - Plan Referrals: Vesna Chao, PAC [Physician Lpn Rn] - 01/13/18 1:15 pm Cody Ash MD [Partnered Physician] - 01/25/18 4:50 pm Scarlett Regan, PAC [Physician Lpn Rn] - 01/05/18 10:30 am Faviola Bañuelos, BUOY TENDER [Primary Care Provider] -
--- NOTE | 2017-12-30 17:40 | Electrocardiograph Report ---
[place] [address] Test Date: 2017-12-28 Pat Name: Eris Downey Department: 114 Room: 2N14 Gender: M Lyft Driver: : [id number] Requested By: Scarlett Regan Order Number: [id number] Reading MD: Jm Howell Measurements Intervals [place] Rate: 51 P: 39 [place]: 177 QRS: 28 QRSD: 86 T: 19 QT: 418 QTc: 396 Interpretive Statements SINUS BRADYCARDIA LOW QRS VOLTAGE IN PRECORDIAL LEADS POSSIBLE INFERIOR MYOCARDIAL INFARCTION, PROBABLY OLD Electronically Signed On 12-30-2017 17:38:46 EDT by Jm Howell
[2017-12-30] MEDS: *HR* Enoxaparin 30 MG/0.3 ML SYRINGE SQ SCH (18:18)
[2017-12-31 02:26] LABS: Basophils % 0.4 %; Hematocrit 33.9 % (37.5-50.1); Immature Granulocytes % 0.4 % (0-4); Lymphocytes # 1.4 K/mcL (0.6-4.6); Lymphocytes % 15.7 %; Mean Corpuscular Hemoglobin 31.5 pg (28.0-33.3); Mean Corpuscular Volume 95.5 fL (83.0-100.0); Mean Platelet Volume 11.2 fL (9.4-12.4); Monocytes # 0.9 K/mcL (0.0-1.3); Monocytes % 9.3 %; Neutrophils # 6.8 K/mcL (1.6-8.9); Platelet Count 174 K/mcL (140-400); Red Blood Count 3.55 M/mcL (4.19-5.50); Red Cell Distribution Width 13.1 % (11.5-14.5); Segmented Neutrophils % 74.2 %
[2017-12-31 02:30] LABS: Hemoglobin 11.2 g/dL (12.9-16.9)
[2017-12-31 02:41] LABS: BUN/Creatinine Ratio 23 (6-26); Blood Urea Nitrogen 23 mg/dL (8-23); Calcium 9.5 mg/dL (8.6-10.3); Carbon Dioxide 29 mEq/L (23-29); Chloride 102 mEq/L (98-107); Glucose 115 mg/dL (70-105); Osmolality,Calculated 287 (280-300); Potassium 4.4 mEq/L (3.5-5.1); Sodium 136 mEq/L (136-145); eGFR For African Americans > 60 (> 60); eGFR For Non-African Americans > 60 (> 60)
[2017-12-31] MEDS: Ipratropium/Albuterol Neb 3 ML IH SCH ×4 (05:14→21:02)
[2017-12-31] MEDS: Acetylcysteine 10% 2 ML INHSOL IH SCH ×4 (05:14→21:04)
[2017-12-31 05:17] LABS: ABG Base Excess 6 mEq/L (-2 to 3); ABG HCO3 30 mEq/L (21-27); ABG Oxygen Saturation 93 % (95-98); ABG PCO2 41 mmHg (35-45); ABG PH 7.47 pH Units (7.32-7.45); ABG PO2 61 mmHg (85-104); ABG TCO2 31 mEq/L (20-26)
[2017-12-31] MEDS: Budesonide/Formoterol 80/4.5 MDI IH SCH (05:22)
[2017-12-31] MEDS: *HR* OxyCODONE Immed Rel 5 MG TABLET PO PRN ×3 (05:44→17:57)
[2017-12-31] MEDS: *HR* Enoxaparin 30 MG/0.3 ML SYRINGE SQ SCH ×2 (05:45→20:19)
[2017-12-31] MEDS: Cholecalciferol (D-3) 1,000 UNIT TABLET PO SCH (08:02)
[2017-12-31] MEDS: Loratadine 10 MG TABLET PO SCH (08:02)
[2017-12-31] MEDS: Aspirin Enteric Coated 81 MG Tablet PO SCH (08:02)
[2017-12-31] MEDS: predniSONE 20 MG TABLET PO SCH (08:02)
[2017-12-31] MEDS: amLODIPine 5 MG TABLET PO SCH (08:03)
[2017-12-31] MEDS ORDERED: *HR* Dextrose 50 % in Water (Syg) 50 ML SYRINGE IVP PRN (14:16)
[2017-12-31] MEDS ORDERED: D5% in Water 1,000 ML IVC PRN (14:16)
[2017-12-31] MEDS ORDERED: Dextrose Gel 15 GM/37.5 ML TUBE PO PRN ×2 (14:16)
--- NOTE | 2017-12-31 14:18 | Internal Med Progress Note ---
Date of Encounter: 12/31/17 Time of Encounter: 14:17 - Assessment and plan (1) Status post total knee replacement, left Current Visit: Yes Status: Acute Assessment and plan: Management per primary. (2) COPD (chronic obstructive pulmonary disease) Current Visit: Yes Status: Chronic Assessment and plan: Acute respiratory failure s/p knee surgery. Still requiring 4L NC; wean to room air as tolerated. RT consulted. Likely acute exacerbation of COPD. Continue prednisone 40 mg PO QD. Continue scheduled duonebs Q6H. Continue claritin, mucinex, mucomyst inhaled, and chest PT for cough. Will qualify for home O2 around discharge time. Qualifiers: COPD type: unspecified COPD Qualified Code(s): J44.9 - Chronic obstructive pulmonary disease, unspecified (3) Acute respiratory failure with hypoxia Current Visit: Yes Status: Acute Assessment and plan: Management as per above. (4) HTN (hypertension) Current Visit: Yes Status: Chronic Assessment and plan: Continue home medications. Qualifiers: Hypertension type: essential hypertension Qualified Code(s): I10 - Essential (primary) hypertension (5) Hyperkalemia Current Visit: Yes Status: Resolved Assessment and plan: Resolved. Nephrology consulted; appreciate input. Recheck BMP in AM. (6) SHANA (acute kidney injury) Current Visit: Yes Status: Resolved Assessment and plan: Resolved. Nephrology consulted; appreciate input. Discontinue IVF. Encourage PO hydration. Recheck BMP in AM. (7) DVT prophylaxis Current Visit: Yes Status: Acute Assessment and plan: Continue SQ lovenox. - Time Spent With Patient Total time spent is greater than 50% in coordination of care (as documented) at patient's floor/unit and/or counseling patient: less than 15 minutes - Subjective Interval history: Patient had no acute events overnight. He has not required BiPAP in last 24 hours. He is on 4L NC at this time. He has no supplemental oxygen at home. He states that he still feels "better." Cough is more productive. He denies fever, chills, chest pain, nausea, vomiting, or abdominal pain. He has no other complaints at this time. Nursing staff reports some mild hyperglycemia after starting prednisone; there is a questionable history of DM. - Constitutional Vitals: Temp Pulse Resp BP Pulse Ox 98.4 F 85 17 131/70 97 12/31/17 10:59 12/31/17 10:59 12/31/17 10:59 12/31/17 10:59 12/31/17 10:59 General appearance: Present: cooperative, A&O X 3, pleasant, no acute distress, obese, answers questions appropriately - Respiratory Respiratory exam: Present: CTAB. Absent: accessory muscle use, rales, rhonchi, wheezes Additional comments: Normal WOB - Cardiovascular Cardiovascular exam: Present: RRR, +S1, +S2. Absent: diastolic murmur, gallop, rubs, systolic murmur Additional comments: No BLE edema - GI/Abdominal GI/Abdominal exam: Present: normal bowel sounds, soft. Absent: distended, hepatomegaly, mass, splenomegaly, tenderness - Psychiatric Psychiatric exam: Present: normal affect, normal mood. Absent: agitated, anxious, depressed - Skin Skin exam: Present: dry, warm. Absent: cyanosis, erythema, rash Internal Medicine: Result - Labs CBC & Chem 7: 12/31/17 01:17 12/31/17 01:17 Labs: Short CBC 12/31/17 Range/Units 01:17 WBC 9.1 (4.3-11.1) K/mcL Hgb 11.2 L (12.9-16.9) g/dL Hct 33.9 L (37.5-50.1) % Plt Count 174 (140-400) K/mcL Neutrophils # 6.8 (1.6-8.9) K/mcL BMP 12/31/17 01:17 Sodium 136 Potassium 4.4 Chloride 102 Carbon Dioxide 29 BUN 23 Creatinine 1.02 Glucose 115 H Calcium 9.5 - ABG Interpretation ABG results: ABG ABG pH 7.47 pH Units (7.32-7.45) H 12/31/17 05:13 ABG pCO2 41 mmHg (35-45) 12/31/17 05:13 ABG pO2 61 mmHg (85-104) L 12/31/17 05:13 ABG O2 Saturation 93 % (95-98) L 12/31/17 05:13 Consult Discharge Plan - Plan Referrals: Vensa Chao, PAC [Physician Photoengraver Apprentice] - 01/13/18 1:15 pm Cody Ash MD [Partnered Physician] - 01/25/18 4:50 pm Scarlett Regan, PAC [Physician Photoengraver Apprentice] - 01/05/18 10:30 am Fvaiola Bañuelos, CASUAL SHOE INSPECTOR [Primary Care Provider] -
--- NOTE | 2017-12-31 15:51 | Orthopedics Progress Note ---
Date of Encounter: 12/31/17 Time of Encounter: 15:49 Subjective Principal diagnosis: S/p L total knee replacement; Hyperkalemia; SHANA Interval history: Patient transferred up from , states he is doing better but was having quite a bit of pain this morning Patient on CPM Left knee, dressings one third soak through, but appeared dry, intact Bilateral calves soft and nontender Grossly varus intact distally A/ POD # 3, kidneys and pulmonary function improving P/continue OT/PT/CPM Continue DVT prophylaxis Continue medical management for pulmonary function and kidneys Objective Vital signs: Vital Signs Temp Pulse Resp BP Pulse Ox 12/31/17 10:59 98.4 F 85 17 131/70 97 12/31/17 10:47 16 95 12/31/17 07:15 97.7 F 89 18 124/82 92 12/31/17 05:14 18 94 12/31/17 04:13 98.2 F 98 20 148/84 93 12/30/17 23:18 20 94 12/30/17 22:56 98.3 F 93 20 142/78 95 12/30/17 19:16 97.9 F 85 16 136/83 94 12/30/17 16:31 97.3 F L 83 17 136/99 97 12/30/17 15:57 17 94 Intake and Output 12/30/17 12/31/17 12/31/17 23:59 07:59 15:59 Intake Total 0 / 0 350 / 350 540 / 540 Output Total 0 / 0 Balance 0 / 0 350 / 350 540 / 540 Intake: Oral 0 / 0 350 / 350 540 / 540 Output: Urine 0 / 0 Other: Meal Lunch Percent of Meal Consumed 85% # Voids 1 1 Weight 118 kg Blood Glucose* 128 117 192 Patient Weight 12/31/17 23:59 Weight 118 kg - Labs CBC & BMP: 12/31/17 01:17 12/31/17 01:17 Labs: Abnormal lab results RBC 3.55 M/mcL (4.19-5.50) L 12/31/17 01:17 Hgb 11.2 g/dL (12.9-16.9) L 12/31/17 01:17 Hct 33.9 % (37.5-50.1) L 12/31/17 01:17 ABG pH 7.47 pH Units (7.32-7.45) H 12/31/17 05:13 ABG pO2 61 mmHg (85-104) L 12/31/17 05:13 ABG HCO3 30 mEq/L (21-27) H 12/31/17 05:13 ABG Total CO2 31 mEq/L (20-26) H 12/31/17 05:13 ABG O2 Saturation 93 % (95-98) L 12/31/17 05:13 ABG Base Excess 6 mEq/L (-2 to 3) H 12/31/17 05:13 VBG pH 7.25 pH Units (7.32-7.42) L 12/28/17 19:35 VBG pCO2 61 mmHg (41-51) H 12/28/17 19:35 VBG pO2 191 mmHg (25-50) H 12/28/17 19:35 Glucose 115 mg/dL (70-105) H 12/31/17 01:17 POC Glucose 192 mg/dL (70-99) H 12/31/17 11:30 Phosphorus 5.5 mg/dL (2.7-4.5) H 12/29/17 16:41 - VTE Documentation of Mechanical Device: Venous foot pump, device Consult Discharge Plan - Plan Referrals: Vesna Chao, PAC [Physician Go Cart Mechanic] - 01/13/18 1:15 pm Cody Ash MD [Partnered Physician] - 01/25/18 4:50 pm Scarlett Regan PAC [Physician Go Cart Mechanic] - 01/05/18 10:30 am Faviola Bañuelos, TRACER CLERK [Primary Care Provider] -
--- NOTE | 2017-12-31 17:18 | Nephrology Progress Note ---
Date of Encounter: 12/31/17 Time of Encounter: 17:14 - Assessment and Plan (1) SHANA (acute kidney injury) Current Visit: Yes Status: Resolved Renal function appears to have returned to normal. Will monitor one more day and likely sign off Tuesday. (2) HTN (hypertension) Current Visit: Yes Status: Chronic Qualifiers: Hypertension type: essential hypertension Qualified Code(s): I10 - Essential (primary) hypertension Subjective Principal diagnosis: S/p L total knee replacement; Hyperkalemia; SHANA Interval history: Patient seen. No new complaint. Objective - Vital Signs Vital signs: Vital Signs Temp Pulse Resp BP Pulse Ox 12/31/17 16:04 16 96 12/31/17 13:00 98.5 F 98 18 129/94 94 12/31/17 10:59 98.4 F 85 17 131/70 97 12/31/17 10:47 16 95 12/31/17 07:15 97.7 F 89 18 124/82 92 12/31/17 05:14 18 94 12/31/17 04:13 98.2 F 98 20 148/84 93 12/30/17 23:18 20 94 12/30/17 22:56 98.3 F 93 20 142/78 95 12/30/17 19:16 97.9 F 85 16 136/83 94 Intake and Output 12/31/17 12/31/17 12/31/17 07:59 15:59 23:59 Intake Total 350 / 350 540 / 540 Balance 350 / 350 540 / 540 Intake: Oral 350 / 350 540 / 540 Other: Meal Lunch Percent of Meal Consumed 85% # Voids 1 Weight 118 kg Blood Glucose* 117 127 Patient Weight 12/31/17 23:59 Weight 118 kg - General Appearance General appearance: Present: well-developed, well-nourished EENT: Present: ATNC Neck: Present: supple Cardiology: Present: regular rate Integumentary: Present: warm and dry Neurologic: Present: alert and oriented x3 Psychiatric: Present: mood/affect appropriate - Lab 12/31/17 01:17 12/31/17 01:17 Most recent lab results ABG pH 7.47 pH Units (7.32-7.45) H 12/31/17 05:13 ABG pCO2 41 mmHg (35-45) 12/31/17 05:13 ABG pO2 61 mmHg (85-104) L 12/31/17 05:13 ABG HCO3 30 mEq/L (21-27) H 12/31/17 05:13 ABG O2 Saturation 93 % (95-98) L 12/31/17 05:13 Calcium 9.5 mg/dL (8.6-10.3) 12/31/17 01:17 Phosphorus 5.5 mg/dL (2.7-4.5) H 12/29/17 16:41 - VTE Documentation of Mechanical Device: Venous foot pump, device Consult Discharge Plan - Plan Referrals: Vensa Chao, PAC [Physician Front End Java Developer] - 01/13/18 1:15 pm Cody Ash MD [Partnered Physician] - 01/25/18 4:50 pm Scarlett Regan, PAC [Physician Front End Java Developer] - 01/05/18 10:30 am Faviola Bañuelos, FOREST NURSERY WORKER [Primary Care Provider] -
[2017-12-31] MEDS: Insulin LISPRO 300 UNITS/3 ML VIAL SQ SCH ×2 (17:58→20:39)
[2018-01-01 01:27] LABS: Basophils # 0.1 K/mcL (0.0-0.2); Basophils % 0.6 %; Eosinophils # 0.1 K/mcL (0.0-0.6); Eosinophils % 0.6 %; Hemoglobin 11.6 g/dL (12.9-16.9); Immature Granulocytes % 0.6 % (0-4); Lymphocytes # 2.5 K/mcL (0.6-4.6); Lymphocytes % 24.1 %; Mean Corpuscular HGB Conc 34.1 g/dL (31.6-35.5); Mean Corpuscular Hemoglobin 32.9 pg (28.0-33.3); Mean Corpuscular Volume 96.3 fL (83.0-100.0); Mean Platelet Volume 10.9 fL (9.4-12.4); Monocytes # 1.2 K/mcL (0.0-1.3); Monocytes % 11.8 %; Neutrophils # 6.5 K/mcL (1.6-8.9); Platelet Count 184 K/mcL (140-400); Red Blood Count 3.53 M/mcL (4.19-5.50); Red Cell Distribution Width 13.2 % (11.5-14.5); Segmented Neutrophils % 62.3 %
[2018-01-01 01:34] LABS: BUN/Creatinine Ratio 21 (6-26); Blood Urea Nitrogen 19 mg/dL (8-23); Calcium 9.6 mg/dL (8.6-10.3); Carbon Dioxide 28 mEq/L (23-29); Chloride 103 mEq/L (98-107); Glucose 106 mg/dL (70-105); Osmolality,Calculated 287 (280-300); Potassium 4.1 mEq/L (3.5-5.1); Sodium 137 mEq/L (136-145); eGFR For African Americans > 60 (> 60); eGFR For Non-African Americans > 60 (> 60)
[2018-01-01] MEDS: Ipratropium/Albuterol Neb 3 ML IH SCH ×4 (04:45→21:44)
[2018-01-01] MEDS: Acetylcysteine 10% 2 ML INHSOL IH SCH ×4 (04:45→21:44)
[2018-01-01] MEDS: *HR* Enoxaparin 30 MG/0.3 ML SYRINGE SQ SCH ×2 (05:13→18:04)
[2018-01-01] MEDS: *HR* OxyCODONE Immed Rel 5 MG TABLET PO PRN ×2 (05:14→12:47)
[2018-01-01] MEDS: Insulin LISPRO 300 UNITS/3 ML VIAL SQ SCH ×4 (08:00→20:28)
[2018-01-01] MEDS: Aspirin Enteric Coated 81 MG Tablet PO SCH (09:14)
[2018-01-01] MEDS: predniSONE 20 MG TABLET PO SCH (09:14)
[2018-01-01] MEDS: Loratadine 10 MG TABLET PO SCH (09:14)
[2018-01-01] MEDS: amLODIPine 5 MG TABLET PO SCH (09:14)
[2018-01-01] MEDS: Cholecalciferol (D-3) 1,000 UNIT TABLET PO SCH (09:14)
--- NOTE | 2018-01-01 12:14 | Event Note ---
Date of Encounter: 01/01/18 Time of Encounter: 12:12 The patient was seen briefly. He has no new complaints. His labs were reviewed. His acute kidney injury seems to have completely resolved. His renal function is back to normal. I will sign off. Please call if any questions or concerns.
--- NOTE | 2018-01-01 14:35 | Internal Med Progress Note ---
Date of Encounter: 01/01/18 Time of Encounter: 14:33 - Assessment and plan (1) Status post total knee replacement, left Current Visit: Yes Status: Acute Assessment and plan: Management per primary. (2) COPD (chronic obstructive pulmonary disease) Current Visit: Yes Status: Chronic Assessment and plan: Acute respiratory failure s/p knee surgery. Now requiring 2L NC; wean to room air as tolerated. RT consulted. Likely acute exacerbation of COPD. Continue prednisone 40 mg PO QD. Continue scheduled duonebs Q6H. Continue claritin, mucinex, mucomyst inhaled, and chest PT for cough. Will qualify for home O2 around discharge time, possibly tomorrow Qualifiers: COPD type: unspecified COPD Qualified Code(s): J44.9 - Chronic obstructive pulmonary disease, unspecified (3) Acute respiratory failure with hypoxia Current Visit: Yes Status: Acute Assessment and plan: Management as per above. (4) HTN (hypertension) Current Visit: Yes Status: Chronic Assessment and plan: Continue home medications. Qualifiers: Hypertension type: essential hypertension Qualified Code(s): I10 - Essential (primary) hypertension (5) Hyperkalemia Current Visit: Yes Status: Resolved Assessment and plan: Resolved. Nephrology consulted; appreciate input. Recheck BMP in AM. (6) SHANA (acute kidney injury) Current Visit: Yes Status: Resolved Assessment and plan: Resolved. Nephrology consulted; appreciate input. Encourage PO hydration. Recheck BMP in AM. (7) Hyperglycemia Current Visit: Yes Status: Acute Assessment and plan: Now improved. Questionable history of Type II DM. Likely worsened due to steroid use. Continue accuchecks and SSI QID AC/HS. (8) DVT prophylaxis Current Visit: Yes Status: Acute Assessment and plan: Continue SQ lovenox. - Time Spent With Patient Total time spent is greater than 50% in coordination of care (as documented) at patient's floor/unit and/or counseling patient: less than 15 minutes - Subjective Interval history: Patient had no acute events overnight. He is now down to 2L NC at this time. He feels "good." He denies fever, chills, chest pain, nausea, vomiting, or abdominal pain. He has no other complaints at this time. - Constitutional Vitals: Temp Pulse Resp BP Pulse Ox 97.8 F 90 16 144/91 95 01/01/18 03:49 01/01/18 09:10 01/01/18 10:27 01/01/18 10:27 01/01/18 10:27 General appearance: Present: cooperative, A&O X 3, pleasant, no acute distress, obese, answers questions appropriately - Respiratory Respiratory exam: Absent: accessory muscle use, rales, rhonchi, wheezes Additional comments: Normal WOB, coarse breath sounds bilaterally - Cardiovascular Cardiovascular exam: Present: RRR, +S1, +S2. Absent: diastolic murmur, gallop, rubs, systolic murmur Additional comments: No BLE edema - GI/Abdominal GI/Abdominal exam: Present: normal bowel sounds, soft. Absent: distended, hepatomegaly, mass, splenomegaly, tenderness - Psychiatric Psychiatric exam: Present: normal affect, normal mood. Absent: agitated, anxious, depressed - Skin Skin exam: Present: dry, intact, warm. Absent: cyanosis, rash Additional comments: Mild bruising on left lateral thigh near knee Internal Medicine: Result - Labs CBC & Chem 7: 01/01/18 00:45 01/01/18 00:45 Labs: Short CBC 01/01/18 Range/Units 00:45 WBC 10.3 (4.3-11.1) K/mcL Hgb 11.6 L (12.9-16.9) g/dL Hct 34.0 L (37.5-50.1) % Plt Count 184 (140-400) K/mcL Neutrophils # 6.5 (1.6-8.9) K/mcL BMP 01/01/18 00:45 Sodium 137 Potassium 4.1 Chloride 103 Carbon Dioxide 28 BUN 19 Creatinine 0.90 Glucose 106 H Calcium 9.6 - ABG Interpretation ABG results: ABG ABG pH 7.47 pH Units (7.32-7.45) H 12/31/17 05:13 ABG pCO2 41 mmHg (35-45) 12/31/17 05:13 ABG pO2 61 mmHg (85-104) L 12/31/17 05:13 ABG O2 Saturation 93 % (95-98) L 12/31/17 05:13 Consult Discharge Plan - Plan Referrals: Vesna Chao PAC [Physician Shaft Repairer] - 01/13/18 1:15 pm Cody Ash MD [Partnered Physician] - 01/25/18 4:50 pm Scarlett Regan, PAC [Physician Shaft Repairer] - 01/05/18 10:30 am Faviola Bañuelos, DOCTORATE OF CHIROPRACTIC [Primary Care Provider] -
--- NOTE | 2018-01-01 15:20 | Orthopedics Progress Note ---
Date of Encounter: 01/01/18 Time of Encounter: 15:19 Subjective Principal diagnosis: S/p L total knee replacement; Hyperkalemia; SHANA Interval history: Patient without complaints Patient on CPM Left knee, dressings one third soak through, but appeared dry, intact Positive ecchymosis on the posterior aspect of calf going up to midthigh, no tenderness, no palpable cords Bilateral calves soft and nontender Grossly varus intact distally A/ POD # 4, kidneys and pulmonary function improving P/continue OT/PT/CPM Continue DVT prophylaxis Continue medical management for pulmonary function and kidneys Objective Vital signs: Vital Signs Temp Pulse Resp BP Pulse Ox 01/01/18 10:27 16 144/91 95 01/01/18 09:10 90 16 144/91 94 01/01/18 03:49 97.8 F 87 20 137/91 95 12/31/17 23:21 97.8 F 79 18 114/80 93 12/31/17 20:00 97.7 F 75 16 120/74 95 12/31/17 18:27 98.3 F 91 18 142/90 94 12/31/17 16:04 16 96 Intake and Output 12/31/17 01/01/18 01/01/18 23:59 07:59 15:59 Intake Total 200 / 200 0 / 0 640 / 640 Output Total 0 / 0 0 / 0 Balance 200 / 200 0 / 0 640 / 640 Intake: Oral 200 / 200 0 / 0 640 / 640 Output: Urine 0 / 0 0 / 0 Other: Meal Lunch Percent of Meal Consumed 100% # Voids 2 Weight 118 kg Blood Glucose* 112 177 Patient Weight 01/01/18 23:59 Weight 118 kg - Labs CBC & BMP: 01/01/18 00:45 01/01/18 00:45 Labs: Abnormal lab results RBC 3.53 M/mcL (4.19-5.50) L 01/01/18 00:45 Hgb 11.6 g/dL (12.9-16.9) L 01/01/18 00:45 Hct 34.0 % (37.5-50.1) L 01/01/18 00:45 ABG pH 7.47 pH Units (7.32-7.45) H 12/31/17 05:13 ABG pO2 61 mmHg (85-104) L 12/31/17 05:13 ABG HCO3 30 mEq/L (21-27) H 12/31/17 05:13 ABG Total CO2 31 mEq/L (20-26) H 12/31/17 05:13 ABG O2 Saturation 93 % (95-98) L 12/31/17 05:13 ABG Base Excess 6 mEq/L (-2 to 3) H 12/31/17 05:13 VBG pH 7.25 pH Units (7.32-7.42) L 12/28/17 19:35 VBG pCO2 61 mmHg (41-51) H 12/28/17 19:35 VBG pO2 191 mmHg (25-50) H 12/28/17 19:35 Glucose 106 mg/dL (70-105) H 01/01/18 00:45 POC Glucose 177 mg/dL (70-99) H 01/01/18 11:32 Phosphorus 5.5 mg/dL (2.7-4.5) H 12/29/17 16:41 - VTE Documentation of Mechanical Device: Venous foot pump, device Consult Discharge Plan - Plan Referrals: Vesna Chao, PAC [Physician Supervisor Paste Mixing] - 01/13/18 1:15 pm Cody Ash MD [Partnered Physician] - 01/25/18 4:50 pm Scarlett Regan, PAC [Physician Supervisor Paste Mixing] - 01/05/18 10:30 am Faviola Bañuelos, HEAT TREATER [Primary Care Provider] -
[2018-01-02 01:36] LABS: Basophils # 0.1 K/mcL (0.0-0.2); Basophils % 0.5 %; Eosinophils % 0.3 %; Hematocrit 33.7 % (37.5-50.1); Hemoglobin 11.4 g/dL (12.9-16.9); Immature Granulocytes % 0.6 % (0-4); Lymphocytes # 2.3 K/mcL (0.6-4.6); Lymphocytes % 23.2 %; Mean Corpuscular HGB Conc 33.8 g/dL (31.6-35.5); Mean Corpuscular Hemoglobin 32.7 pg (28.0-33.3); Mean Corpuscular Volume 96.6 fL (83.0-100.0); Mean Platelet Volume 10.8 fL (9.4-12.4); Neutrophils # 6.4 K/mcL (1.6-8.9); Platelet Count 212 K/mcL (140-400); Red Blood Count 3.49 M/mcL (4.19-5.50); Red Cell Distribution Width 13.1 % (11.5-14.5); Segmented Neutrophils % 65.4 %
[2018-01-02 01:57] LABS: BUN/Creatinine Ratio 30 (6-26); Blood Urea Nitrogen 25 mg/dL (8-23); Calcium 9.5 mg/dL (8.6-10.3); Carbon Dioxide 27 mEq/L (23-29); Chloride 102 mEq/L (98-107); Glucose 104 mg/dL (70-105); Osmolality,Calculated 289 (280-300); Potassium 4.1 mEq/L (3.5-5.1); Sodium 137 mEq/L (136-145); eGFR For African Americans > 60 (> 60); eGFR For Non-African Americans > 60 (> 60)
[2018-01-02] MEDS: Ipratropium/Albuterol Neb 3 ML IH SCH ×3 (03:25→16:10)
[2018-01-02] MEDS: Acetylcysteine 10% 2 ML INHSOL IH SCH ×3 (03:26→16:10)
[2018-01-02] MEDS: *HR* Enoxaparin 30 MG/0.3 ML SYRINGE SQ SCH (04:51)
[2018-01-02] MEDS: *HR* OxyCODONE Immed Rel 5 MG TABLET PO PRN (04:54)
--- NOTE | 2018-01-02 06:49 | Orthopedics Progress Note ---
Date of Encounter: 01/02/18 Time of Encounter: 06:49 Subjective Principal diagnosis: S/p L total knee replacement; Hyperkalemia; SHANA Interval history: Patient was seen this morning doing well without complaints. Afebrile vital signs stable. Operative extremity: Neurovascularly intact Dressing clean dry and intact Calves nontender Assessment and plan: Continue with postoperative care Plan for discharge today Objective Vital signs: Vital Signs Temp Pulse Resp BP Pulse Ox 01/02/18 03:39 97.8 F 82 18 125/86 93 01/02/18 03:27 18 92 01/01/18 22:48 97.9 F 74 18 123/75 93 01/01/18 21:46 18 92 01/01/18 19:41 97.8 F 73 16 111/71 95 01/01/18 15:27 16 144/91 94 01/01/18 10:27 16 144/91 95 01/01/18 09:10 90 16 144/91 94 Intake and Output 01/01/18 01/01/18 01/02/18 15:59 23:59 07:59 Intake Total 640 / 640 710 / 710 0 / 0 Output Total 0 / 0 Balance 640 / 640 710 / 710 0 / 0 Intake: Oral 640 / 640 710 / 710 0 / 0 Output: Urine 0 / 0 Other: Meal Lunch Dinner Percent of Meal Consumed 100% 45% # Voids 1 1 Weight 118 kg Blood Glucose* 177 139 Patient Weight 01/02/18 23:59 Weight 118 kg - Labs CBC & BMP: 01/02/18 00:55 01/02/18 00:55 Labs: Abnormal lab results RBC 3.49 M/mcL (4.19-5.50) L 01/02/18 00:55 Hgb 11.4 g/dL (12.9-16.9) L 01/02/18 00:55 Hct 33.7 % (37.5-50.1) L 01/02/18 00:55 ABG pH 7.47 pH Units (7.32-7.45) H 12/31/17 05:13 ABG pO2 61 mmHg (85-104) L 12/31/17 05:13 ABG HCO3 30 mEq/L (21-27) H 12/31/17 05:13 ABG Total CO2 31 mEq/L (20-26) H 12/31/17 05:13 ABG O2 Saturation 93 % (95-98) L 12/31/17 05:13 ABG Base Excess 6 mEq/L (-2 to 3) H 12/31/17 05:13 VBG pH 7.25 pH Units (7.32-7.42) L 12/28/17 19:35 VBG pCO2 61 mmHg (41-51) H 12/28/17 19:35 VBG pO2 191 mmHg (25-50) H 12/28/17 19:35 BUN 25 mg/dL (8-23) H 01/02/18 00:55 BUN/Creatinine Ratio 30 (6-26) H 01/02/18 00:55 POC Glucose 139 mg/dL (70-99) H 01/01/18 20:19 Phosphorus 5.5 mg/dL (2.7-4.5) H 12/29/17 16:41 - VTE Documentation of Mechanical Device: Venous foot pump, device Consult Discharge Plan - Plan Referrals: Vesna Chao, PAC [Physician Care Professionals] - 01/13/18 1:15 pm Cody Ash MD [Partnered Physician] - 01/25/18 4:50 pm Scarlett Regan, PAC [Physician Care Professionals] - 01/05/18 10:30 am Faviola Bañuelos, GAS DERRICK OPERATOR [Primary Care Provider] -
[2018-01-02] MEDS: Budesonide/Formoterol 80/4.5 MDI IH SCH (07:22)
[2018-01-02] MEDS: Insulin LISPRO 300 UNITS/3 ML VIAL SQ SCH ×2 (07:53→16:26)
[2018-01-02 11:30] VITALS: BP 124/76
--- NOTE | 2018-01-02 14:15 | Discharge Summary ---
Orders not resulted at time of discharge: Pending orders 12/28/17 09:45 US anesthesia pain block [US] Routine Date of Encounter: 01/02/18 Time of Encounter: 14:14 - Discharge Diagnosis (1) Status post total knee replacement, left Status: Acute (2) COPD (chronic obstructive pulmonary disease) Status: Chronic Qualifiers: COPD type: unspecified COPD Qualified Code(s): J44.9 - Chronic obstructive pulmonary disease, unspecified (3) Acute respiratory failure with hypoxia Status: Acute (4) HTN (hypertension) Status: Chronic Qualifiers: Hypertension type: essential hypertension Qualified Code(s): I10 - Essential (primary) hypertension (5) Hyperkalemia Status: Resolved (6) SHANA (acute kidney injury) Status: Resolved (7) Hyperglycemia Status: Acute (8) DVT prophylaxis Status: Acute Hospital course: Mr. Downey is a 62 year old male - Time Spent with Patient Total time spent providing and/or coordinating discharge services: - Discharge Medications Home Medications: Aspirin Enteric Coated [Aspirin EC] 325 mg PO BID #20 tablet. 12/27/17 [Rx] OxyCODONE Immed Rel [Roxicodone 5 MG] 5 mg PO Q6HR PRN 7 Days #28 tablet [Rx] Acetaminophen/Diphenhydramine [Percogesic 325-12.5 mg Tablet] 1 tab PO HS PRN [History] Albuterol Sulfate [Ventolin Hfa] 2 puff IH Q4-6H PRN 12/28/17 [History] Amlodipine Besylate [Amlodipine Besylate] 10 mg PO DAILY 12/28/17 [History] Aspirin [Lo-Dose Aspirin EC] 81 mg PO DAILY 12/28/17 [History] Atenolol [Tenormin] 25 mg PO DAILY 12/28/17 [History] Atorvastatin [Lipitor] 40 mg PO HS 12/28/17 [History] Cholecalciferol (D-3) [Vitamin D] 5,000 unit PO MO 12/28/17 [History] Fluticasone/Salmeterol [Advair 250-50 Diskus] 1 puff IH BID 12/28/17 [History] Ipratropium/Albuterol Neb [Duoneb] 3 ml IH Q6H PRN 12/28/17 [History] Lisinopril [Zestril] 40 mg PO DAILY 12/28/17 [History] Melatonin/Pyridoxine HCl (B6) [Melatonin 3 mg Tablet] 1 tab PO HS PRN 12/28/17 [ History] Omeprazole [PriLOSEC] 40 mg PO Q48H 12/28/17 [History] Allergies/Adverse Reactions: 3 Allergy/AdvReac Type Severity Reaction Status Date / Time No Known Allergies Allergy Verified 12/28/17 10:11 Date of admission: 12/28/17 14:48 Primary care physician: Faviola Bañuelos CNP Consults: 12/28/17 14:54 Consult to Occupational Therapy [CONS] Routine Comment: Evaluate, develop and implement POC Reason for Consult: post knee surgery Does patient have active BEDREST order?: No Is patient medically & hemodynamically stable?: Yes Consult to Orthopedic Navigator [CONS] [CONS] Routine Consult to Physical Therapy [CONS] Routine Comment: Evaluate, develop and impliment POC Reason for Consult: post knee surgery Does patient have active BEDREST order?: No Is patient medically & hemodynamically stable?: Yes Consult to Scientific Glass Blower [CONS] Routine Reason for SW Consult: post op joint replacement RT Post Op Consult [CONS] Routine 12/28/17 17:02 Consult to Hospitalist [CONS] Routine Consulting Provider: Hospitalist Ainsley Reason for Consult: Bradycardia, hypoxia, s/p Left Total Knee Call Completed: Yes 12/29/17 09:09 Consult to Nephrology [CONS] Routine Consulting Provider: Kidney [place]ILUC[place]NA/YOSEF/PEDRO Reason for Consult: elevated labs Call Completed: Yes 12/30/17 09:34 Consult to Respiratory Therapy [CONS] Stat Reason for Consult: Acute Respiratory Failure, COPD Call Completed: No 12/31/17 14:21 Consult to Scientific Glass Blower [CONS] Routine Reason for SW Consult: Qualify for home O2 - Constitutional Vitals: Temp Pulse Resp BP Pulse Ox 98.4 F 64 18 124/76 97 01/02/18 11:29 01/02/18 11:29 01/02/18 11:29 01/02/18 11:29 01/02/18 11:29 General appearance: Present: cooperative, A&O X 3, pleasant, no acute distress, obese, answers questions appropriately - Discharge Instructions Follow Up With: Zhanna,Vesna E, PAC [Physician Non Destructive Evaluation Specialist] - 01/13/18 1:15 pm Cody Ash MD [Partnered Physician] - 01/25/18 4:50 pm Scarlett Regan, PAC [Physician Non Destructive Evaluation Specialist] - 01/05/18 10:30 am Faviola Bañuelos CNP [Primary Care Provider] - - VTE Documentation of Mechanical Device: Venous foot pump, device
--- NOTE | 2018-01-02 14:22 | Internal Med Progress Note ---
Date of Encounter: 01/02/18 Time of Encounter: 14:18 - Assessment and plan (1) Status post total knee replacement, left Current Visit: Yes Status: Acute Assessment and plan: Management per primary. (2) COPD (chronic obstructive pulmonary disease) Current Visit: Yes Status: Chronic Assessment and plan: Acute respiratory failure s/p knee surgery. Likely acute exacerbation of COPD. Now on 2L NC. Will discharge home with prescription for home supplemental O2 2L NC continuous. Will also provide prescription for prednisone taper. He will follow up with PCP in 2-3 days after discharge. He can be referred for outpatient sleep study at that time. He will follow up with orthopedic surgery as directed. Continue scheduled duonebs Q6H at home. He is clear for discharge from my perspective. I will sign off. Qualifiers: COPD type: unspecified COPD Qualified Code(s): J44.9 - Chronic obstructive pulmonary disease, unspecified (3) Acute respiratory failure with hypoxia Current Visit: Yes Status: Acute Assessment and plan: Management as per above. (4) HTN (hypertension) Current Visit: Yes Status: Chronic Assessment and plan: Continue home medications. Qualifiers: Hypertension type: essential hypertension Qualified Code(s): I10 - Essential (primary) hypertension (5) Hyperkalemia Current Visit: Yes Status: Resolved Assessment and plan: Resolved. (6) SHANA (acute kidney injury) Current Visit: Yes Status: Resolved Assessment and plan: Resolved. (7) Hyperglycemia Current Visit: Yes Status: Acute Assessment and plan: Now improved. Questionable history of Type II DM. Likely worsened due to steroid use. Discontinue accuchecks and SSI QID AC/HS at discharge. (8) DVT prophylaxis Current Visit: Yes Status: Acute Assessment and plan: Continue SQ lovenox until discharge. - Time Spent With Patient Total time spent is greater than 50% in coordination of care (as documented) at patient's floor/unit and/or counseling patient: less than 15 minutes - Subjective Interval history: Patient had no acute events overnight. He has been stable on 2L NC at this time. He has been walked and qualified for home O2. I have provided prescription for home O2. He has home nebulizer machine and nebulizer medications at home. I will provide him with a prescription for prednisone taper. He feels "good." He denies fever, chills, chest pain, nausea, vomiting , or abdominal pain. He has no other complaints at this time. - Constitutional Vitals: Temp Pulse Resp BP Pulse Ox 98.4 F 64 18 124/76 97 01/02/18 11:29 01/02/18 11:29 01/02/18 11:29 01/02/18 11:29 01/02/18 11:29 General appearance: Present: cooperative, A&O X 3, pleasant, no acute distress, obese, answers questions appropriately - Respiratory Respiratory exam: Absent: accessory muscle use, rales, rhonchi, wheezes Additional comments: Normal WOB, coarse breath sounds bilaterally - Cardiovascular Cardiovascular exam: Present: RRR, +S1, +S2. Absent: diastolic murmur, gallop, rubs, systolic murmur Additional comments: No BLE edema - GI/Abdominal GI/Abdominal exam: Present: normal bowel sounds, soft. Absent: distended, hepatomegaly, mass, splenomegaly, tenderness - Psychiatric Psychiatric exam: Present: normal affect, normal mood. Absent: agitated, anxious, depressed - Skin Skin exam: Present: dry, intact, warm. Absent: cyanosis, rash Internal Medicine: Result - Labs CBC & Chem 7: 01/02/18 00:55 01/02/18 00:55 Labs: Short CBC 01/02/18 Range/Units 00:55 WBC 9.7 (4.3-11.1) K/mcL Hgb 11.4 L (12.9-16.9) g/dL Hct 33.7 L (37.5-50.1) % Plt Count 212 (140-400) K/mcL Neutrophils # 6.4 (1.6-8.9) K/mcL BMP 01/02/18 00:55 Sodium 137 Potassium 4.1 Chloride 102 Carbon Dioxide 27 BUN 25 H Creatinine 0.83 Glucose 104 Calcium 9.5 - ABG Interpretation ABG results: ABG ABG pH 7.47 pH Units (7.32-7.45) H 12/31/17 05:13 ABG pCO2 41 mmHg (35-45) 12/31/17 05:13 ABG pO2 61 mmHg (85-104) L 12/31/17 05:13 ABG O2 Saturation 93 % (95-98) L 12/31/17 05:13 Consult Discharge Plan - Plan Referrals: Vesna Chao, PAC [Physician Computer Systems Support Specialist] - 01/13/18 1:15 pm Cody Ash MD [Partnered Physician] - 01/25/18 4:50 pm Scarlett Regan, PAC [Physician Computer Systems Support Specialist] - 01/05/18 10:30 am Faviola Bañuelos, CONTINUOUS MINING MACHINE OPERATOR [Primary Care Provider] -
--- NOTE | 2018-01-05 11:31 | Discharge Summary ---
Orders not resulted at time of discharge: Pending orders 12/28/17 09:45 US anesthesia pain block [US] Routine Date of Encounter: 01/05/18 Time of Encounter: 11:26 - Discharge Diagnosis (1) Acute respiratory failure with hypoxia Priority: Primary Status: Acute (2) Bradycardia Priority: Primary Status: Acute (3) DVT prophylaxis Priority: Secondary Status: Chronic (4) Hyperglycemia Priority: Primary Status: Acute (5) Status post total knee replacement, left Priority: Primary Status: Acute (6) Arthritis of knee, left Priority: Primary Status: Chronic (7) COPD (chronic obstructive pulmonary disease) Priority: Secondary Status: Chronic Qualifiers: COPD type: unspecified COPD Qualified Code(s): J44.9 - Chronic obstructive pulmonary disease, unspecified (8) HTN (hypertension) Priority: Secondary Status: Chronic Qualifiers: Hypertension type: essential hypertension Qualified Code(s): I10 - Essential (primary) hypertension (9) History of abdominal aortic aneurysm (AAA) Priority: Secondary Status: Chronic (10) Tobacco use Priority: Secondary Status: Chronic (11) SHANA (acute kidney injury) Priority: Primary Status: Resolved (12) Hyperkalemia Priority: Primary Status: Resolved - Hospital Course Hospital course: Mr. Downey is a 62 year old male Patient status post left total knee replacement. Patient's postoperative course , complicated by acute kidney injury acute respiratory failure bradycardia. Patient required observation and cardiac care unit, patient was treated successfully. Patient spent 2 additional days on the orthopedic unit after the cardiac care unit was discharged in stable condition. - Time Spent with Patient Total time spent providing and/or coordinating discharge services: - Discharge Medications Prescriptions: predniSONE [PredniSONE] See Taper PO DAILY 12 Days #30 tablet Home Medications: Aspirin Enteric Coated [Aspirin EC] 325 mg PO BID #20 tablet. 12/27/17 [Rx] OxyCODONE Immed Rel [Roxicodone 5 MG] 5 mg PO Q6HR PRN 7 Days #28 tablet [Rx] Acetaminophen/Diphenhydramine [Percogesic 325-12.5 mg Tablet] 1 tab PO HS PRN [History] Albuterol Sulfate [Ventolin Hfa] 2 puff IH Q4-6H PRN 12/28/17 [History] Amlodipine Besylate [Amlodipine Besylate] 10 mg PO DAILY 12/28/17 [History] Aspirin [Lo-Dose Aspirin EC] 81 mg PO DAILY 12/28/17 [History] Atenolol [Tenormin] 25 mg PO DAILY 12/28/17 [History] Atorvastatin [Lipitor] 40 mg PO HS 12/28/17 [History] Cholecalciferol (D-3) [Vitamin D] 5,000 unit PO MO 12/28/17 [History] Fluticasone/Salmeterol [Advair 250-50 Diskus] 1 puff IH BID 12/28/17 [History] Ipratropium/Albuterol Neb [Duoneb] 3 ml IH Q6H PRN 12/28/17 [History] Lisinopril [Zestril] 40 mg PO DAILY 12/28/17 [History] Melatonin/Pyridoxine HCl (B6) [Melatonin 3 mg Tablet] 1 tab PO HS PRN 12/28/17 [ History] Omeprazole [PriLOSEC] 40 mg PO Q48H 12/28/17 [History] predniSONE [PredniSONE] See Taper PO DAILY 12 Days #30 tablet 01/02/18 [Rx] Allergies/Adverse Reactions: 3 Allergy/AdvReac Type Severity Reaction Status Date / Time No Known Allergies Allergy Verified 12/28/17 10:11 Date of admission: 12/28/17 14:48 Primary care physician: Faviola Bañuelos CNP Consults: 12/28/17 14:54 Consult to Occupational Therapy [CONS] Routine Comment: Evaluate, develop and implement POC Reason for Consult: post knee surgery Does patient have active BEDREST order?: No Is patient medically & hemodynamically stable?: Yes Consult to Orthopedic Navigator [CONS] [CONS] Routine Consult to Physical Therapy [CONS] Routine Comment: Evaluate, develop and impliment POC Reason for Consult: post knee surgery Does patient have active BEDREST order?: No Is patient medically & hemodynamically stable?: Yes Consult to Development Spec [CONS] Routine Reason for SW Consult: post op joint replacement RT Post Op Consult [CONS] Routine 12/29/17 09:09 Consult to Nephrology [CONS] Routine Consulting Provider: [facility] [place]/MEET/YOSEF/PEDRO Reason for Consult: elevated labs Call Completed: Yes 12/30/17 09:34 Consult to Respiratory Therapy [CONS] Stat Reason for Consult: Acute Respiratory Failure, COPD Call Completed: No 07/14/18 14:21 Consult to Development Spec [CONS] Routine Reason for SW Consult: Qualify for home O2 - VTE Documentation of Mechanical Device: Venous foot pump, device - Impressions ITS Impressions Knee X-Ray 12/28/17 00:01 IMPRESSION: Status post left knee arthroplasty without acute postoperative complication. D/ / 12/28/2017 13:41:06 Mick Matos MD / [email or web address] Interpreting Provider: Mick Matos MD Chest X-Ray 12/28/17 17:56 IMPRESSION: 1. Perihilar vascular congestion with basilar atelectasis. D/ / 12/28/2017 18:41:24 Apoorva Castano MD / [email or web address] Interpreting Provider: Apoorva Castano MD Retroperitoneum Ultrasound 12/29/17 17:06 IMPRESSION: No acute abnormality. No hydronephrosis. D/ / Jani Walker MD / Jani Walker MD Interpreting Provider: Jani Walker MD - Patient Status Disposition: Home Health Service Condition: Good Functional capacity at discharge: uses cane/walker Overall status at discharge: patient is progressing back to baseline - Discharge Instructions Instructions: Using Oxygen at Home (DC), Hypoxia (GEN) Follow Up With: Vesna Chao PAC [Physician Cleaner] - 01/13/18 1:15 pm Cody Ash MD [Partnered Physician] - 01/25/18 4:50 pm Scarlett Regan PAC [Physician Cleaner] - 01/05/18 10:30 am Faviola Bañuelos STORE RECEIVING CLERK [Primary Care Provider] - 01/05/18 12:30 pm Additional Instructions: PLEASE FOLLOW UP WITH YOUR PCP SCHEDULED RE:NEW OXYGEN NEED. Discharge Instructions: Total Knee Replacement Please call [facility] ([phone]), your Primary Care Physician, or report to the Emergency Room if you have any of the following symptoms: Nausea, vomiting, fever greater that 101.5, swelling, chest pain, shortness of breath, increased pain/redness/drainage/odor for your incision site, numbness/ tingling, or any other concerning symptoms. ACTIVITY:Weight-bearing as tolerated. You may progress off support (crutches or walker) as tolerated. MEDICATIONS: Upon discharge resume your home medications. Take all the medications as prescribed. Take a stool softener if taking narcotic pain medications. Stool softeners are only effective if you drink enough fluids. Drink 6-8 glass of water or fluids a day, unless this is not allowed for another health problem. Despite using stool softeners, if you haven't had a bowel movement in 3 days, please switch to a gentle laxative. Gentle laxatives are sold over the counter. You should have a bowel movement within 24 hours, if not call the office. You will be discharged from the hospital with a prescription for pain medication. You are encouraged to decrease the use of narcotic pain medication as tolerated. Should you require a refill, please call the office. [facility] prescribes narcotic pain medication for only 4-6 weeks after surgery. If you require pain medication beyond this time period, you may be referred to your Primary Care Physician or to the Pain Clinic for further evaluation. Plan ahead for refills on pain medication as many narcotics either need to be picked up at the office or mailed. It is best to call 48-72 hours in advance of needing a prescription refill so you don't run out of medication. To help control the post-operative pain, you may take NSAIDs (Aleve,Advil, Motrin, Ibuprofen, Naprosyn) or Tylenol as prescribed on the bottle in addition to the pain medication. ANTICOAGULATION (blood thinners): Continue your Aspirin, Lovenox or Coumadin as prescribed to help prevent a blood clot in the leg or in the lungs. As long as your incision remains dry and you tolerate the NSAIDs (Aleve, Advil, Motrin, ibuprofen, naprosyn), it is OK to use the NSAIDS while you are taking your anticoagulation medication. Should your incision start to drain, stop the NSAID and contact our office. Common symptoms of blood clot in the legs include: localized pain, swelling, calf tenderness, redness or discoloration of the skin. Blood clot in the lung symptoms include: shortness of breath, rapid pulse, sweating, and chest pain that worsens with deep breathing, coughing up blood, lightheadedness, feelings of anxiety. If you experience any of these symptoms notify your physician immediately, go to the emergency room, or if having trouble breathing, call 911. WOUND CARE: Leave the dressing on for 7 to 10days. You may change the dressing if it becomes saturated greater than 50%. Do not get the dressing wet at anytime. Wash your hands with antibacterial soap, rinse and dry prior to any wound care. If you have sridhar the visiting nurse or rehab facility can remove the stapes 10-14 days after surgery and place steri-strips across the wound. Leave the steri-strips in place until they fall off on their won. You may let water from the shower run on top of the steri-strips. If you do not have a visiting nurse or rehab facility, you will need to return to the office at 10-14 days for the sridhar to be removed. If you have itching or redness around the dressing call the office. FOLLOW-UP: Please follow up with your surgeon in the orthopedic clinic in 4 weeks from the day of surgery. If you have sridhar that need to be removed, you will need to come back to the office in 10-14 days from the day of surgery.
== END 2018-01-02 17:39 | disposition home health service (06) | DRG 469 ==
LOC: SAMDAY 08:46 → 3NENU 14:48 → 2NNU 20:03 → 3NENU 12-30 17:57
PROVIDERS: ADMIT Orthopaedic Surgery; ATTEND Orthopaedic Surgery